=== PATIENT | female | born 1950 | race Caucasian/White ===

== ENCOUNTER → 2016-10-15 | Outpatient (REF) | payer MEDICARE ==
[2016-10-15 12:50] LABS: INR 2.25
== END ==
LOC: M LABDRAW1 11:32
PROVIDERS: ATTEND Emergency Medicine
DX: D68.59 Other primary thrombophilia (principal); Z79.01 Long term (current) use of anticoagulants

== ENCOUNTER → 2016-11-20 | Outpatient (REF) | payer MEDICARE ==
[2016-11-20 11:54] LABS: INR 2.93
== END ==
LOC: M LABDRAW1 11:21
PROVIDERS: ATTEND Emergency Medicine
DX: D68.59 Other primary thrombophilia (principal)

== ENCOUNTER → 2016-12-21 | Outpatient (REF) | payer MEDICARE ==
[2016-12-21 13:29] LABS: INR 1.79
== END ==
LOC: M LABDRAW1 12:51
PROVIDERS: ATTEND Emergency Medicine
DX: D68.59 Other primary thrombophilia (principal)

== ENCOUNTER → 2016-12-28 | Outpatient (REF) | payer MEDICARE ==
[2016-12-29 03:01] LABS: INR 2.47
== END ==
LOC: M LABDRAW1 09:05
PROVIDERS: ATTEND Emergency Medicine
DX: D68.59 Other primary thrombophilia (principal)

== ENCOUNTER → 2017-02-07 | Outpatient (REF) | payer MEDICARE ==
[2017-02-07 12:37] LABS: INR 2.5
== END ==
LOC: M LABDRAW1 11:51
PROVIDERS: ATTEND Emergency Medicine
DX: D68.59 Other primary thrombophilia (principal)

== ENCOUNTER → 2017-03-08 | Outpatient (REF) | payer MEDICARE ==
[2017-03-08 10:46] LABS: BASO % 0.5 % (0.0-1.0); EOS # 0.4 K/mm3 (0.0-0.50); EOS % 3.7 % (0.0-3.0); LARGE UNSTAINED CELL # 0.1 K/mm3 (0.0-0.4); LARGE UNSTAINED CELL % 1.1 % (0.0-4.0); LYMPH # 1.3 K/mm3 (1.5-4.5); LYMPH % 13.9 % (24.0-44.0); MEAN CORPUSCULAR HEMOGLOBIN 31.3 pg (27.0-33.0); MEAN CORPUSCULAR HGB CONC 32.9 g/dl (32.0-36.5); MEAN CORPUSCULAR VOLUME 95.2 fl (80.0-96.0); MONO # 0.6 K/mm3 (0.0-0.8); MONO % 6.4 % (0.0-5.0); NEUTROPHILS # 7.1 K/mm3 (1.8-7.7); NEUTROPHILS % 74.2 % (36.0-66.0); PLATELET COUNT, AUTOMATED 262 k/mm3 (150-450); RED CELL DISTRIBUTION WIDTH 14.4 % (11.5-14.5); WHITE BLOOD COUNT 9.5 K/mm3 (4.0-10.0)
[2017-03-08 10:53] LABS: INR 1.56
[2017-03-08 11:23] LABS: ALBUMIN 3.6 GM/DL (3.2-5.2); ALBUMIN/GLOBULIN RATIO 1.13 (1.00-1.93); BILIRUBIN,TOTAL 0.4 MG/DL (0.2-1.0); CALCIUM LEVEL 8.8 MG/DL (8.8-10.2); CREATININE FOR GFR 0.99 MG/DL (0.55-1.02); GLOMERULAR FILTRATION RATE 59.6 (>45); POTASSIUM SERUM 4.3 MEQ/L (3.5-5.1); TOTAL PROTEIN 6.8 GM/DL (6.4-8.2)
== END ==
LOC: M LABDRAW1 10:18
PROVIDERS: ATTEND Emergency Medicine
DX: I10 Essential (primary) hypertension (principal); E78.2 Mixed hyperlipidemia; E55.9 Vitamin D deficiency, unspecified; D68.59 Other primary thrombophilia

== ENCOUNTER → 2017-03-22 | Outpatient (REF) | payer MEDICARE ==
[2017-03-22 12:59] LABS: INR 2.29
== END ==
LOC: M LABDRAW1 12:18
PROVIDERS: ATTEND Emergency Medicine
DX: D68.59 Other primary thrombophilia (principal)

== ENCOUNTER → 2017-04-16 | Outpatient (REF) | payer MEDICARE ==
[2017-04-16 13:52] LABS: INR 1.92
== END ==
LOC: M LABDRAW1 13:11
PROVIDERS: ATTEND Emergency Medicine
DX: D68.59 Other primary thrombophilia (principal)

== ENCOUNTER → 2017-04-25 | Outpatient (REF) | payer MEDICARE ==
[2017-04-25 16:36] LABS: INR 2.02
== END ==
LOC: M LABDRAW1 16:01
PROVIDERS: ATTEND Emergency Medicine
DX: D68.59 Other primary thrombophilia (principal)

== ENCOUNTER → 2017-05-31 | Outpatient (REF) | payer MEDICARE ==
[2017-05-31 16:36] LABS: INR 2.12
== END ==
LOC: M LABDRAW1 15:38
PROVIDERS: ATTEND Emergency Medicine
DX: D68.59 Other primary thrombophilia (principal)

== ENCOUNTER → 2017-08-26 | Outpatient (REF) | payer MEDICARE ==
[2017-08-26 11:48] LABS: INR 3.13
== END ==
LOC: M LABDRAW1 08:12
PROVIDERS: ATTEND Emergency Medicine
DX: D68.59 Other primary thrombophilia (principal)

== ENCOUNTER → 2017-09-09 | Outpatient (REF) | payer MEDICARE ==
[2017-09-09 11:33] LABS: BASO % 0.4 % (0.0-1.0); EOS # 0.2 10^3/uL (0.0-0.50); EOS % 2.1 % (0.0-3.0); IMMATURE GRANULOCYTE % 0.4 % (0-0); LYMPH # 1.6 10^3/uL (1.5-4.5); LYMPH % 17.3 % (24.0-44.0); MEAN CORPUSCULAR HEMOGLOBIN 29.1 pg (27.0-33.0); MEAN CORPUSCULAR VOLUME 93.9 fl (80.0-96.0); MONO # 0.8 10^3/uL (0.0-0.8); MONO % 9.3 % (0.0-5.0); NEUTROPHILS # 6.4 10^3/uL (1.8-7.7); NEUTROPHILS % 70.5 % (36.0-66.0); PLATELET COUNT, AUTOMATED 277 10^3/uL (150-450); RED CELL DISTRIBUTION WIDTH 15.9 % (11.5-14.5)
[2017-09-09 11:36] LABS: INR 2.8
[2017-09-09 12:34] LABS: ALBUMIN 3.4 GM/DL (3.2-5.2); ALBUMIN/GLOBULIN RATIO 1.17 (1.00-1.93); ALKALINE PHOSPHATASE 75 U/L (45-117); ALT/SGPT 26 U/L (12-78); ANION GAP 10 MEQ/L (8-16); AST/SGOT 25 U/L (7-37); BILIRUBIN,TOTAL 0.4 MG/DL (0.2-1.0); BLOOD UREA NITROGEN 16 MG/DL (7-18); CALCIUM LEVEL 8.6 MG/DL (8.8-10.2); CARBON DIOXIDE LEVEL 22 MEQ/L (21-32); CHLORIDE LEVEL 110 MEQ/L (98-107); CHOLESTEROL LEVEL 193 MG/DL (<200); CREATININE FOR GFR 0.98 MG/DL (0.55-1.02); GLOMERULAR FILTRATION RATE > 60.0 (>45); GLUCOSE, FASTING 97 MG/DL (80-110); SODIUM LEVEL 142 MEQ/L (136-145); TOTAL PROTEIN 6.3 GM/DL (6.4-8.2); TRIGLYCERIDES LEVEL 115 MG/DL (<150)
== END ==
LOC: M LABDRAW1 08:17
PROVIDERS: ATTEND Emergency Medicine
DX: D68.59 Other primary thrombophilia (principal); E55.9 Vitamin D deficiency, unspecified; E78.2 Mixed hyperlipidemia; I10 Essential (primary) hypertension

== ENCOUNTER → 2017-10-23 | Outpatient (REF) | payer MEDICARE ==
[2017-10-23 12:12] LABS: PROTHROMBIN TIME 24.3 SECONDS (12.4-14.5)
== END ==
LOC: M LABDRAW1 11:41
DX: D68.59 Other primary thrombophilia (principal)
CPT/HCPCS: 85610

== ENCOUNTER → 2017-11-19 | Outpatient (REF) | payer MEDICARE ==
[2017-11-19 12:35] LABS: INR 2.67; PROTHROMBIN TIME 29.6 SECONDS (12.4-14.5)
== END ==
LOC: M LABDRAW1 11:35
DX: D68.59 Other primary thrombophilia (principal)
CPT/HCPCS: 85610

== ENCOUNTER → 2017-12-12 | Outpatient (REF) | payer MEDICARE ==
[2017-12-12 11:48] LABS: INR 1.94; PROTHROMBIN TIME 22.8 SECONDS (12.4-14.5)
== END ==
LOC: M LABDRAW1 10:09
DX: D68.59 Other primary thrombophilia (principal)
CPT/HCPCS: 85610

== ENCOUNTER → 2018-01-21 | Outpatient (REF) | payer MEDICARE ==
[2018-01-21 12:38] LABS: PROTHROMBIN TIME 55.2 SECONDS (12.4-14.5)
[2018-01-21 13:49] LABS: INR 5.76
== END ==
LOC: M LABDRAW1 10:20
DX: D68.59 Other primary thrombophilia (principal); Z79.01 Long term (current) use of anticoagulants
CPT/HCPCS: 85610

== ENCOUNTER → 2018-01-27 | Outpatient (REF) | payer MEDICARE ==
[2018-01-27 12:59] LABS: INR 1.45
== END ==
LOC: M LABDRAW1 09:07
DX: Z79.01 Long term (current) use of anticoagulants (principal); D68.59 Other primary thrombophilia
CPT/HCPCS: 85610

== ENCOUNTER → 2018-02-04 | Outpatient (REF) | payer MEDICARE ==
[2018-02-04 11:53] LABS: INR 2.21; PROTHROMBIN TIME 25.4 SECONDS (12.4-14.5)
== END ==
LOC: M LABDRAW1 10:14
DX: Z79.01 Long term (current) use of anticoagulants (principal)
CPT/HCPCS: 85610

== ENCOUNTER → 2018-02-11 | Outpatient (REF) | payer MEDICARE ==
[2018-02-11 13:10] LABS: INR 2.87; PROTHROMBIN TIME 31.3 SECONDS (12.4-14.5)
== END ==
LOC: M LABDRAW1 09:58
DX: Z51.81 Encounter for therapeutic drug level monitoring (principal); Z79.01 Long term (current) use of anticoagulants
CPT/HCPCS: 85610

== ENCOUNTER → 2018-03-10 | Outpatient (REF) | payer MEDICARE ==
[2018-03-10 11:51] LABS: BASO # 0.1 10^3/uL (0.0-0.2); BASO % 0.5 % (0.0-1.0); EOS # 0.3 10^3/uL (0.0-0.50); EOS % 2.6 % (0.0-3.0); HEMATOCRIT 35.7 % (36.0-47.0); HEMOGLOBIN 11.3 g/dl (12.0-15.5); IMMATURE GRANULOCYTE % 0.7 % (0-3.0); LYMPH # 1.3 10^3/uL (1.5-4.5); LYMPH % 13.6 % (24.0-44.0); MEAN CORPUSCULAR HEMOGLOBIN 28.8 pg (27.0-33.0); MEAN CORPUSCULAR HGB CONC 31.7 g/dl (32.0-36.5); MEAN CORPUSCULAR VOLUME 91.1 fl (80.0-96.0); MONO # 0.8 10^3/uL (0.0-0.8); MONO % 8.1 % (0.0-5.0); NEUTROPHILS % 74.5 % (36.0-66.0); PLATELET COUNT, AUTOMATED 274 10^3/uL (150-450); RED BLOOD COUNT 3.92 10^6/uL (4.00-5.40); RED CELL DISTRIBUTION WIDTH 16.6 % (11.5-14.5); WHITE BLOOD COUNT 9.5 10^3/uL (4.0-10.0)
[2018-03-10 12:02] LABS: INR 4.07; PROTHROMBIN TIME 41.6 SECONDS (12.4-14.5); TOTAL 25(OH) VITAMIN D 36.5 NG/ML (30.0-100.0)
[2018-03-10 12:14] LABS: ALBUMIN 3.3 GM/DL (3.2-5.2); ALKALINE PHOSPHATASE 74 U/L (45-117); ALT/SGPT 29 U/L (12-78); ANION GAP 14 MEQ/L (8-16); AST/SGOT 23 U/L (7-37); BILIRUBIN,TOTAL 0.3 MG/DL (0.2-1.0); BLOOD UREA NITROGEN 17 MG/DL (7-18); CALCIUM LEVEL 8.6 MG/DL (8.8-10.2); CARBON DIOXIDE LEVEL 20 MEQ/L (21-32); CHLORIDE LEVEL 111 MEQ/L (98-107); CHOLESTEROL LEVEL 180 MG/DL (<200); CHOLESTEROL RISK RATIO 2.368 (<5); CREATININE FOR GFR 1.21 MG/DL (0.55-1.30); GLOMERULAR FILTRATION RATE 47.1 (>45); GLUCOSE, FASTING 104 MG/DL (70-100); HDL CHOLESTEROL 76 MG/DL (>40); NON-HDL-C 104 MG/DL; POTASSIUM SERUM 4.3 MEQ/L (3.5-5.1); SODIUM LEVEL 145 MEQ/L (136-145); TOTAL PROTEIN 6.3 GM/DL (6.4-8.2); TRIGLYCERIDES LEVEL 85 MG/DL (<150)
== END ==
LOC: M LABDRAW1 08:14
DX: I10 Essential (primary) hypertension (principal); E78.2 Mixed hyperlipidemia; E55.9 Vitamin D deficiency, unspecified; D68.59 Other primary thrombophilia
CPT/HCPCS: 80053

== ENCOUNTER → 2018-03-17 | Outpatient (REF) | payer MEDICARE ==
[2018-03-17 13:03] LABS: PROTHROMBIN TIME 54.2 SECONDS (12.4-14.5)
[2018-03-17 13:55] LABS: INR 5.63
== END ==
LOC: M LABDRAW1 09:09
DX: Z79.01 Long term (current) use of anticoagulants (principal)
CPT/HCPCS: 85610

== ENCOUNTER → 2018-03-24 | Outpatient (REF) | payer MEDICARE ==
[2018-03-24 11:56] LABS: INR 2.52; PROTHROMBIN TIME 27.7 SECONDS (12.1-14.4)
== END ==
LOC: M LABDRAW1 09:23
DX: Z79.01 Long term (current) use of anticoagulants (principal)
CPT/HCPCS: 85610

== ENCOUNTER → 2018-04-22 | Outpatient (REF) | payer MEDICARE ==
[2018-04-22 12:28] LABS: INR 1.64; PROTHROMBIN TIME 19.7 SECONDS (12.1-14.4)
== END ==
LOC: M LABDRAW1 11:42
DX: Z79.01 Long term (current) use of anticoagulants (principal)
CPT/HCPCS: 85610

== ENCOUNTER → 2018-05-05 | Outpatient (REF) | payer MEDICARE ==
[2018-05-05 16:06] LABS: INR 3.18; PROTHROMBIN TIME 33.3 SECONDS (12.1-14.4)
== END ==
LOC: M LABDRAW1 13:00
DX: Z79.01 Long term (current) use of anticoagulants (principal)
CPT/HCPCS: 85610

== ENCOUNTER → 2018-06-16 | Outpatient (REF) | payer MEDICARE ==
[2018-06-16 12:57] LABS: INR 2.94; PROTHROMBIN TIME 31.3 SECONDS (12.1-14.4)
== END ==
LOC: M LABDRAW1 11:05
DX: Z79.01 Long term (current) use of anticoagulants (principal)
CPT/HCPCS: 85610

== ENCOUNTER 2018-07-18 09:04 | Emergency (ER) | payer MEDICARE ==
[2018-07-18] MEDS: MORPHINE 4 MG/ML 1ML VIAL/SYRINGE (J2270) IV ×2 (09:40→13:19)
[2018-07-18] MEDS: ONDANSETRON 4MG/2ML VIAL (J2405) IV (09:40)
[2018-07-18] MEDS: CLINDAMYCIN 900 MG in APPROPRIATE DILUENT 1 EA IV (09:41)
[2018-07-18] MEDS: NS 500 ML IV (09:41)
[2018-07-18 09:53] LABS: BASO # 0.1 10^3/uL (0.0-0.2); BASO % 0.2 % (0.0-1.0); EOS # 0.1 10^3/uL (0.0-0.50); EOS % 0.3 % (0.0-3.0); HEMATOCRIT 34.8 % (36.0-47.0); IMMATURE GRANULOCYTE % 0.8 % (0-3.0); LYMPH # 0.8 10^3/uL (1.5-4.5); LYMPH % 3.5 % (24.0-44.0); MEAN CORPUSCULAR HEMOGLOBIN 27.9 pg (27.0-33.0); MEAN CORPUSCULAR HGB CONC 31.6 g/dl (32.0-36.5); MEAN CORPUSCULAR VOLUME 88.3 fl (80.0-96.0); MONO # 1.5 10^3/uL (0.0-0.8); NEUTROPHILS # 19.1 10^3/uL (1.8-7.7); NEUTROPHILS % 88.2 % (36.0-66.0); PLATELET COUNT, AUTOMATED 264 10^3/uL (150-450); RED BLOOD COUNT 3.94 10^6/uL (4.00-5.40); RED CELL DISTRIBUTION WIDTH 17.7 % (11.5-14.5); WHITE BLOOD COUNT 21.6 10^3/uL (4.0-10.0)
[2018-07-18 10:09] LABS: INR 3.54; PROTHROMBIN TIME 36.3 SECONDS (12.1-14.4)
[2018-07-18 10:10] LABS: PARTIAL THROMBOPLASTIN TIME 45.7 SECONDS (25.4-37.6)
[2018-07-18 10:19] LABS: ANION GAP 10 MEQ/L (8-16); BLOOD UREA NITROGEN 19 MG/DL (7-18); C REACTIVE PROTEIN QUANTITATIV 6.84 MG/DL (0.00-0.30); CALCIUM LEVEL 8.5 MG/DL (8.8-10.2); CARBON DIOXIDE LEVEL 21 MEQ/L (21-32); CHLORIDE LEVEL 107 MEQ/L (98-107); CREATININE FOR GFR 1.19 MG/DL (0.55-1.30); GLOMERULAR FILTRATION RATE 47.9 (>45); GLUCOSE, FASTING 91 MG/DL (70-100); POTASSIUM SERUM 3.9 MEQ/L (3.5-5.1); SODIUM LEVEL 138 MEQ/L (136-145)
[2018-07-18] MEDS ORDERED: ISOVUE-370 76% 100ML VIAL (Q9967) As Ordered (10:29)
== END 2018-07-18 13:35 | disposition short-term general hospital (02) ==
LOC: M ED 09:04
DX: K05.212 Aggressive periodontitis, localized, moderate (principal); L03.211 Cellulitis of face; K21.9 Gastro-esophageal reflux disease without esophagitis; D68.51 Activated protein C resistance; Z79.899 Other long term (current) drug therapy; Z79.01 Long term (current) use of anticoagulants
CPT/HCPCS: J2270

== ENCOUNTER → 2018-08-05 | Outpatient (REF) | payer MEDICARE ==
[2018-08-05 13:55] LABS: INR 4.11; PROTHROMBIN TIME 40.8 SECONDS (12.1-14.4)
== END ==
LOC: M LABDRAW1 13:12
DX: D68.59 Other primary thrombophilia (principal)
CPT/HCPCS: 85610

== ENCOUNTER → 2018-08-07 | Outpatient (REF) | payer MEDICARE ==
[2018-08-07 12:17] LABS: INR 1.95; PROTHROMBIN TIME 22.6 SECONDS (12.1-14.4)
== END ==
LOC: M LABDRAW1 11:19
DX: Z51.81 Encounter for therapeutic drug level monitoring (principal); Z79.01 Long term (current) use of anticoagulants
CPT/HCPCS: 85610

== ENCOUNTER → 2018-08-18 | Outpatient (REF) | payer MEDICARE ==
[2018-08-18 13:07] LABS: INR 3.17; PROTHROMBIN TIME 33.2 SECONDS (12.1-14.4)
== END ==
LOC: M LABDRAW1 09:24
DX: Z79.01 Long term (current) use of anticoagulants (principal)
CPT/HCPCS: 85610

== ENCOUNTER → 2018-08-26 | Outpatient (REF) | payer MEDICARE ==
[2018-08-26 11:08] LABS: INR 3.86; PROTHROMBIN TIME 38.9 SECONDS (12.1-14.4)
== END ==
LOC: M LABDRAW1 09:11
DX: Z79.01 Long term (current) use of anticoagulants (principal)
CPT/HCPCS: 85610

== ENCOUNTER → 2018-09-02 | Outpatient (REF) | payer MEDICARE ==
[2018-09-02 11:58] LABS: BASO % 0.4 % (0.0-1.0); EOS # 0.2 10^3/uL (0.0-0.50); EOS % 1.8 % (0.0-3.0); HEMATOCRIT 34.9 % (36.0-47.0); HEMOGLOBIN 10.5 g/dl (12.0-15.5); IMMATURE GRANULOCYTE % 0.5 % (0-3.0); LYMPH # 1.2 10^3/uL (1.5-4.5); MEAN CORPUSCULAR HEMOGLOBIN 25.6 pg (27.0-33.0); MEAN CORPUSCULAR HGB CONC 30.1 g/dl (32.0-36.5); MEAN CORPUSCULAR VOLUME 85.1 fl (80.0-96.0); MONO # 0.9 10^3/uL (0.0-0.8); MONO % 8.6 % (0.0-5.0); NEUTROPHILS # 7.8 10^3/uL (1.8-7.7); NEUTROPHILS % 76.7 % (36.0-66.0); PLATELET COUNT, AUTOMATED 348 10^3/uL (150-450); RED CELL DISTRIBUTION WIDTH 16.9 % (11.5-14.5); WHITE BLOOD COUNT 10.2 10^3/uL (4.0-10.0)
[2018-09-02 12:11] LABS: ALBUMIN 3.4 GM/DL (3.2-5.2); ALBUMIN/GLOBULIN RATIO 1.03 (1.00-1.93); ALKALINE PHOSPHATASE 64 U/L (45-117); ALT/SGPT 27 U/L (12-78); ANION GAP 8 MEQ/L (8-16); AST/SGOT 29 U/L (7-37); BILIRUBIN,TOTAL 0.3 MG/DL (0.2-1.0); BLOOD UREA NITROGEN 16 MG/DL (7-18); CALCIUM LEVEL 8.6 MG/DL (8.8-10.2); CARBON DIOXIDE LEVEL 24 MEQ/L (21-32); CHLORIDE LEVEL 111 MEQ/L (98-107); CHOLESTEROL LEVEL 151 MG/DL (<200); CHOLESTEROL RISK RATIO 2.253 (<5); CREATININE FOR GFR 1.14 MG/DL (0.55-1.30); GLOMERULAR FILTRATION RATE 50.3 (>45); GLUCOSE, FASTING 113 MG/DL (70-100); HDL CHOLESTEROL 67 MG/DL (>40); LDL CHOLESTEROL 58 MG/DL (<100); NON-HDL-C 84 MG/DL; POTASSIUM SERUM 4.3 MEQ/L (3.5-5.1); SODIUM LEVEL 143 MEQ/L (136-145); TOTAL 25(OH) VITAMIN D 41.9 NG/ML (30.0-100.0); TOTAL PROTEIN 6.7 GM/DL (6.4-8.2); TRIGLYCERIDES LEVEL 131 MG/DL (<150)
[2018-09-02 12:18] LABS: INR 3.32; PROTHROMBIN TIME 34.5 SECONDS (12.1-14.4)
== END ==
LOC: M LABDRAW1 09:51
DX: I10 Essential (primary) hypertension (principal); E78.2 Mixed hyperlipidemia; E55.9 Vitamin D deficiency, unspecified; D68.59 Other primary thrombophilia
CPT/HCPCS: 80053

== ENCOUNTER → 2018-09-18 | Outpatient (REF) | payer MEDICARE ==
[~2018-09-18] MED LIST: ATEN50TA2 PO; ERGO500014 PO; FLUO40CA PO; IBAN150T6 PO; LEVOTAB10 PO; OMEP40CA2 PO; VALA1TAB2 PO; WARF-20 PO; ZALE10CA PO
[2018-09-18 16:04] LABS: INR 4.15; PROTHROMBIN TIME 41.2 SECONDS (12.1-14.4)
== END ==
LOC: M LABDRAW1 14:32
PROVIDERS: ATTEND Physician Assistant
DX: Z79.01 Long term (current) use of anticoagulants (principal)

== ENCOUNTER → 2018-10-15 | Outpatient (REF) | payer MEDICARE ==
[2018-10-15 12:21] LABS: INR 2.64; PROTHROMBIN TIME 28.7 SECONDS (12.1-14.4)
== END ==
LOC: M LABDRAW1 09:46
PROVIDERS: ATTEND Physician Assistant
DX: Z79.01 Long term (current) use of anticoagulants (principal)

== ENCOUNTER → 2018-11-06 | Outpatient (REF) | payer MEDICARE ==
[2018-11-06 12:40] LABS: BASO % 0.4 % (0.0-1.0); EOS # 0.2 10^3/uL (0.0-0.50); EOS % 1.9 % (0.0-3.0); HEMATOCRIT 36.5 % (36.0-47.0); HEMOGLOBIN 10.9 g/dl (12.0-15.5); LYMPH # 1.1 10^3/uL (1.5-4.5); LYMPH % 11.2 % (24.0-44.0); MEAN CORPUSCULAR HEMOGLOBIN 25.1 pg (27.0-33.0); MEAN CORPUSCULAR HGB CONC 29.9 g/dl (32.0-36.5); MEAN CORPUSCULAR VOLUME 83.9 fl (80.0-96.0); MONO # 0.9 10^3/uL (0.0-0.8); NEUTROPHILS # 7.7 10^3/uL (1.8-7.7); NEUTROPHILS % 76.9 % (36.0-66.0); PLATELET COUNT, AUTOMATED 313 10^3/uL (150-450); RED BLOOD COUNT 4.35 10^6/uL (4.00-5.40)
[2018-11-06 12:52] LABS: INR 2.93; PROTHROMBIN TIME 31.2 SECONDS (12.1-14.4)
[2018-11-06 13:09] LABS: ALBUMIN 3.5 GM/DL (3.2-5.2); BILIRUBIN,TOTAL 0.4 MG/DL (0.2-1.0); CALCIUM LEVEL 8.9 MG/DL (8.8-10.2); CREATININE FOR GFR 1.13 MG/DL (0.55-1.30); GLOMERULAR FILTRATION RATE 50.8 (>45); PERCENT SATURATION 9.4 % (13.2-45.0); POTASSIUM SERUM 4.2 MEQ/L (3.5-5.1); TOTAL PROTEIN 6.6 GM/DL (6.4-8.2)
== END ==
LOC: M LABDRAW1 11:54
PROVIDERS: ATTEND Physician Assistant
DX: D68.9 Coagulation defect, unspecified (principal); Z79.01 Long term (current) use of anticoagulants

== ENCOUNTER → 2018-12-19 | Outpatient (REF) | payer MEDICARE ==
[2018-12-19 12:11] LABS: INR 3.89; PROTHROMBIN TIME 39.1 SECONDS (12.1-14.4)
== END ==
LOC: M LABDRAW1 10:00
PROVIDERS: ATTEND Physician Assistant
DX: Z79.01 Long term (current) use of anticoagulants (principal)

== ENCOUNTER → 2019-01-23 | Outpatient (REF) | payer MEDICARE ==
[~2019-01-23] MED LIST changes: -ERGO500014 PO; +VITA500045 PO
[2019-01-23 12:57] LABS: INR 3.75
== END ==
LOC: M LABDRAW1 11:37
PROVIDERS: ATTEND Physician Assistant
DX: Z51.81 Encounter for therapeutic drug level monitoring (principal); Z79.01 Long term (current) use of anticoagulants

== ENCOUNTER → 2019-01-27 | Outpatient (REF) | payer MEDICARE ==
[2019-01-27 14:09] LABS: INR 4.21; PROTHROMBIN TIME 41.6 SECONDS (12.1-14.4)
== END ==
LOC: M LABDRAW1 11:55
PROVIDERS: ATTEND Physician Assistant
DX: Z79.01 Long term (current) use of anticoagulants (principal)

== ENCOUNTER → 2019-01-30 | Outpatient (REF) | payer MEDICARE ==
[2019-01-30 10:17] LABS: INR 2.05; PROTHROMBIN TIME 23.5 SECONDS (12.1-14.4)
== END ==
LOC: M LABDRAW1 09:36
PROVIDERS: ATTEND Physician Assistant
DX: Z79.01 Long term (current) use of anticoagulants (principal)

== ENCOUNTER → 2019-02-05 | Outpatient (REF) | payer MEDICARE ==
[2019-02-05 11:25] LABS: INR 1.79; PROTHROMBIN TIME 21.1 SECONDS (12.1-14.4)
== END ==
LOC: M LABDRAW1 10:35
PROVIDERS: ATTEND Physician Assistant
DX: Z79.01 Long term (current) use of anticoagulants (principal)

== ENCOUNTER → 2019-02-09 | Outpatient (REF) | payer MEDICARE ==
[2019-02-09 13:36] LABS: INR 2.46; PROTHROMBIN TIME 27.2 SECONDS (12.1-14.4)
== END ==
LOC: M LABDRAW1 12:00
PROVIDERS: ATTEND Physician Assistant
DX: Z79.01 Long term (current) use of anticoagulants (principal)

== ENCOUNTER → 2019-02-17 | Outpatient (REF) | payer MEDICARE ==
[2019-02-17 11:03] LABS: INR 3.2; PROTHROMBIN TIME 33.5 SECONDS (12.1-14.4)
== END ==
LOC: M LABDRAW1 10:29
PROVIDERS: ATTEND Physician Assistant
DX: Z79.01 Long term (current) use of anticoagulants (principal)

== ENCOUNTER → 2019-02-19 | Outpatient (REF) | payer MEDICARE ==
[2019-02-19 14:26] LABS: INR 3.74; PROTHROMBIN TIME 37.9 SECONDS (12.1-14.4)
== END ==
LOC: M LABDRAW1 11:18
PROVIDERS: ATTEND Physician Assistant
DX: Z79.01 Long term (current) use of anticoagulants (principal)

== ENCOUNTER → 2019-02-25 | Outpatient (REF) | payer MEDICARE ==
[2019-02-25 11:37] LABS: INR 3.19; PROTHROMBIN TIME 33.4 SECONDS (12.1-14.4)
== END ==
LOC: M LABDRAW1 10:07
PROVIDERS: ATTEND Physician Assistant
DX: Z79.01 Long term (current) use of anticoagulants (principal)

== ENCOUNTER → 2019-02-27 | Outpatient (REF) | payer MEDICARE ==
[2019-02-27 11:36] LABS: INR 3.37; PROTHROMBIN TIME 34.9 SECONDS (12.1-14.4)
== END ==
LOC: M LABDRAW1 10:34
PROVIDERS: ATTEND Physician Assistant
DX: Z79.01 Long term (current) use of anticoagulants (principal)

== ENCOUNTER → 2019-03-02 | Outpatient (REF) | payer MEDICARE ==
[2019-03-02 11:48] LABS: INR 1.97; PROTHROMBIN TIME 22.8 SECONDS (12.1-14.4)
== END ==
LOC: M LABDRAW1 10:54
PROVIDERS: ATTEND Physician Assistant
DX: Z79.01 Long term (current) use of anticoagulants (principal)

== ENCOUNTER → 2019-03-09 | Outpatient (REF) | payer MEDICARE ==
[2019-03-09 13:23] LABS: BASO # 0.1 10^3/uL (0.0-0.2); BASO % 0.5 % (0.0-1.0); EOS # 0.2 10^3/uL (0.0-0.50); EOS % 1.9 % (0.0-3.0); HEMATOCRIT 35.9 % (36.0-47.0); HEMOGLOBIN 10.6 g/dl (12.0-15.5); LYMPH # 1.3 10^3/uL (1.5-4.5); LYMPH % 12.4 % (24.0-44.0); MEAN CORPUSCULAR HEMOGLOBIN 25.1 pg (27.0-33.0); MEAN CORPUSCULAR HGB CONC 29.5 g/dl (32.0-36.5); MEAN CORPUSCULAR VOLUME 85.1 fl (80.0-96.0); MONO % 9.2 % (0.0-5.0); NEUTROPHILS # 7.8 10^3/uL (1.8-7.7); NEUTROPHILS % 75.4 % (36.0-66.0); PLATELET COUNT, AUTOMATED 342 10^3/uL (150-450); RED BLOOD COUNT 4.22 10^6/uL (4.00-5.40); WHITE BLOOD COUNT 10.3 10^3/uL (4.0-10.0)
[2019-03-09 13:35] LABS: INR 2.33
[2019-03-09 13:59] LABS: PERCENT SATURATION 6.5 % (13.2-45.0); THYROID STIMULATING HORMONE 1.5 uIU/ML (0.358-3.740)
== END ==
LOC: M LABDRAW1 11:50
PROVIDERS: ATTEND Physician Assistant
DX: Z79.01 Long term (current) use of anticoagulants (principal); D64.9 Anemia, unspecified; F41.1 Generalized anxiety disorder

== ENCOUNTER → 2019-03-16 | Outpatient (REF) | payer MEDICARE ==
[2019-03-16 12:46] LABS: INR 2.84; PROTHROMBIN TIME 29.7 SECONDS (11.8-14.0)
== END ==
LOC: M LABDRAW1 11:49
PROVIDERS: ATTEND Physician Assistant
DX: Z79.01 Long term (current) use of anticoagulants (principal)

== ENCOUNTER → 2019-04-02 | Outpatient (REF) | payer MEDICARE ==
[2019-04-02 12:58] LABS: INR 2.85; PROTHROMBIN TIME 29.8 SECONDS (11.8-14.0)
== END ==
LOC: M LABDRAW1 09:17
PROVIDERS: ATTEND Physician Assistant
DX: Z79.01 Long term (current) use of anticoagulants (principal)

== ENCOUNTER → 2019-04-30 | Outpatient (REF) | payer MEDICARE ==
[2019-04-30 13:14] LABS: INR 4.28; PROTHROMBIN TIME 41.3 SECONDS (11.8-14.0)
== END ==
LOC: M LABDRAW1 09:34
PROVIDERS: ATTEND Physician Assistant
DX: D68.59 Other primary thrombophilia (principal); Z79.01 Long term (current) use of anticoagulants

== ENCOUNTER → 2019-05-02 | Outpatient (CLI) | payer MEDICARE ==
[~2019-05-02] MED LIST changes: +ALBU8.5H INH; +CETI10CA2 PO; +FERR325T3 PO; +FLUTISP; +LISI-538 PO; +MULTCAP PO; -OMEP40CA2 PO; +OMEP40CA97 PO; +SIMV40TA20 PO; -VALA1TAB2 PO; +VALA1TAB64 PO; +VITA500079 PO; +WARF-58 PO
[2019-05-02 11:40] LABS: INR 3.97; PROTHROMBIN TIME 38.9 SECONDS (11.8-14.0)
== END ==
LOC: M WUC 09:01
PROVIDERS: ATTEND Physician Assistant
DX: D68.59 Other primary thrombophilia (principal); Z79.01 Long term (current) use of anticoagulants

== ENCOUNTER → 2019-05-05 | Outpatient (REF) | payer MEDICARE ==
[~2019-05-05] MED LIST changes: -ALBU8.5H INH; -CETI10CA2 PO; -FERR325T3 PO; -FLUTISP; -LISI-538 PO; -MULTCAP PO; +OMEP40CA2 PO; -OMEP40CA97 PO; -SIMV40TA20 PO; +VALA1TAB2 PO; -VALA1TAB64 PO; -VITA500079 PO; -WARF-58 PO
[2019-05-05 12:42] LABS: PROTHROMBIN TIME 50.5 SECONDS (11.8-14.0)
[2019-05-05 13:07] LABS: INR 5.51
== END ==
LOC: M LABDRAW1 09:20
PROVIDERS: ATTEND Physician Assistant
DX: D68.59 Other primary thrombophilia (principal); Z79.01 Long term (current) use of anticoagulants

== ENCOUNTER → 2019-05-06 | Outpatient (REF) | payer MEDICARE ==
[2019-05-06 13:54] LABS: INR 5.17
== END ==
LOC: M LABDRAW1 08:56
PROVIDERS: ATTEND Physician Assistant
DX: D68.59 Other primary thrombophilia (principal); Z79.01 Long term (current) use of anticoagulants

== ENCOUNTER → 2019-05-08 | Outpatient (REF) | payer MEDICARE ==
[2019-05-08 12:09] LABS: INR 2.54; PROTHROMBIN TIME 27.2 SECONDS (11.8-14.0)
== END ==
LOC: M LABDRAW1 08:20
PROVIDERS: ATTEND Physician Assistant
DX: D68.59 Other primary thrombophilia (principal); Z79.01 Long term (current) use of anticoagulants

== ENCOUNTER → 2019-05-20 | Outpatient (REF) | payer MEDICARE ==
[2019-05-20 11:58] LABS: INR 2.92; PROTHROMBIN TIME 30.4 SECONDS (11.8-14.0)
== END ==
LOC: M LABDRAW1 09:56
PROVIDERS: ATTEND Physician Assistant
DX: D68.59 Other primary thrombophilia (principal); Z79.01 Long term (current) use of anticoagulants

== ENCOUNTER → 2019-06-11 | Outpatient (REF) | payer MEDICARE ==
[2019-06-11 14:19] LABS: INR 2.65; PROTHROMBIN TIME 28.1 SECONDS (11.8-14.0)
== END ==
LOC: M LAB REF 12:50
PROVIDERS: ATTEND Physician Assistant
DX: D68.59 Other primary thrombophilia (principal); Z79.01 Long term (current) use of anticoagulants

== ENCOUNTER → 2019-07-14 | Outpatient (REF) | payer MEDICARE ==
[~2019-07-14] MED LIST changes: -OMEP40CA2 PO; +OMEP40CA97 PO
[2019-07-14 12:52] LABS: INR 2.87
== END ==
LOC: M LABDRAW1 09:32
PROVIDERS: ATTEND Physician Assistant
DX: D68.59 Other primary thrombophilia (principal); Z79.01 Long term (current) use of anticoagulants

== ENCOUNTER → 2019-08-13 | Outpatient (REF) | payer MEDICARE ==
[2019-08-13 12:34] LABS: INR 2.38; PROTHROMBIN TIME 25.8 SECONDS (11.8-14.0)
== END ==
LOC: M LABDRAW1 11:47
PROVIDERS: ATTEND Physician Assistant
DX: D68.59 Other primary thrombophilia (principal); Z79.01 Long term (current) use of anticoagulants

== ENCOUNTER → 2019-09-07 | Outpatient (REF) | payer MEDICARE ==
[~2019-09-07] MED LIST changes: -VALA1TAB2 PO; +VALA1TAB64 PO
[2019-09-07 12:24] LABS: BASO # 0.1 10^3/uL (0.0-0.2); BASO % 0.4 % (0.0-1.0); EOS # 0.1 10^3/uL (0.0-0.5); EOS % 0.5 % (0.0-3.0); HEMATOCRIT 47.2 % (36.0-47.0); HEMOGLOBIN 14.9 g/dl (12.0-15.5); LYMPH % 7.8 % (24.0-44.0); MEAN CORPUSCULAR HEMOGLOBIN 31.5 pg (27.0-33.0); MEAN CORPUSCULAR HGB CONC 31.6 g/dl (32.0-36.5); MEAN CORPUSCULAR VOLUME 99.8 fl (80.0-96.0); MONO % 7.8 % (0.0-5.0); NEUTROPHILS # 10.1 10^3/uL (1.5-8.5); NEUTROPHILS % 82.8 % (36.0-66.0); PLATELET COUNT, AUTOMATED 275 10^3/uL (150-450); RED BLOOD COUNT 4.73 10^6/uL (4.00-5.40); WHITE BLOOD COUNT 12.3 10^3/uL (4.0-10.0)
[2019-09-07 12:28] LABS: ALBUMIN 3.6 GM/DL (3.2-5.2); BILIRUBIN,TOTAL 0.5 MG/DL (0.2-1.0); CALCIUM LEVEL 9.2 MG/DL (8.8-10.2); CHOLESTEROL RISK RATIO 2.375 (<5); CREATININE FOR GFR 1.03 MG/DL (0.55-1.30); GLOMERULAR FILTRATION RATE 56.4 (>39); PERCENT SATURATION 36.2 % (13.2-45.0); POTASSIUM SERUM 4.3 MEQ/L (3.5-5.1); TOTAL PROTEIN 6.9 GM/DL (6.4-8.2)
[2019-09-07 12:30] LABS: TOTAL 25(OH) VITAMIN D 41.9 NG/ML (30.0-100.0)
[2019-09-07 12:34] LABS: INR 2.28; PROTHROMBIN TIME 24.9 SECONDS (11.8-14.0)
== END ==
LOC: M LABDRAW1 09:37
PROVIDERS: ATTEND Physician Assistant
DX: D64.9 Anemia, unspecified (principal); I10 Essential (primary) hypertension; E78.2 Mixed hyperlipidemia; E55.9 Vitamin D deficiency, unspecified; D68.59 Other primary thrombophilia; Z79.01 Long term (current) use of anticoagulants; Z79.899 Other long term (current) drug therapy

== ENCOUNTER → 2019-09-12 | Outpatient (CLI) | payer MEDICARE ==
--- NOTE | 2019-09-21 10:30 | REP ---
MRI left shoulder without contrast: History: Primary osteoarthritis. Rule out rotator cuff tear. No comparison imaging. The patient relates 6 months ago. Technique: Axial, oblique coronal and oblique sagittal imaging planes utilized. T1 and T2-weighted scans were obtained with and without fat saturation. MRI findings: There is subcortical cyst formation in the superolateral humeral head. This finding may be correlated with impingement. Cortical and medullary bone signal intensity are otherwise normal. There is minimal hypertrophy at the AC joint. There is attenuation of the distal 12 mm of supraspinatus tendon with increased signal intensity consistent with a complete distal supraspinatus rotator cuff tear on T2-weighted scans. No muscle edema or ashly retraction is appreciated. There is a small quantity of subacromial subdeltoid bursal effusion. The infraspinatus and subscapularis tendons appear intact. Biceps tendon is in the bony bicipital groove and has an intact appearance. At the inferior aspect of the glenohumeral articulation there is a small low T1, low T2 signal intensity rectangular shaped focus consistent with a intra-articular osteocartilaginous body. This measures 3 mm in greatest diameter. There is no significant joint effusion. Periarticular soft tissues are otherwise unremarkable. No anterior, posterior or superior labral cartilage tear is seen. Impression: 1. Subacromial subdeltoid bursal effusion. 2. Full-thickness distal supraspinatus cuff tear. 3. Mild AC joint osteoarthritis and acromion process spurring. 4. Suspected 3 mm osteocartilaginous loose body at the inferior joint line. Electronically Signed by Jerzy Faustin MD 09/21/2019 06:17 P
== END ==
LOC: M RAD 12:16
PROVIDERS: ATTEND Orthopaedic Surgery Hand Surgery
DX: M75.122 Complete rotator cuff tear or rupture of left shoulder, not specified as traumatic (principal); M75.52 Bursitis of left shoulder; M25.412 Effusion, left shoulder; M25.712 Osteophyte, left shoulder; M19.012 Primary osteoarthritis, left shoulder

== ENCOUNTER → 2019-10-14 | Outpatient (REF) | payer MEDICARE ==
[~2019-10-14] MED LIST changes: +ALBU8.5H INH; +CETI10CA2 PO; +FERR325T3 PO; +FLUTISP; +LISI-538 PO; +MULTCAP PO; +SIMV40TA20 PO; +VITA500079 PO; +WARF-58 PO
[2019-10-14 12:31] LABS: INR 2.6; PROTHROMBIN TIME 27.7 SECONDS (11.8-14.0)
== END ==
LOC: M LABDRAW1 11:27
PROVIDERS: ATTEND Physician Assistant
DX: D68.59 Other primary thrombophilia (principal)

== ENCOUNTER → 2019-10-18 | Outpatient (CLI) | payer MEDICARE ==
[2019-10-18 11:07] LABS: INR 1.02; PROTHROMBIN TIME 13.1 SECONDS (11.8-14.0)
== END ==
LOC: M LAB 10:21
PROVIDERS: ATTEND Physician Assistant
DX: D68.59 Other primary thrombophilia (principal)

== ENCOUNTER 2019-10-19 05:42 | Day surgery (SDC) | payer MEDICARE ==
[~2019-10-19] VITALS: Ht 149.9 cm; Wt 72.6 kg
[2019-10-19] MEDS ORDERED: ROPIvacaine 0.5% 30 ML INJECTION (J2795 PER 1MG) ONE (05:43)
[2019-10-19] MEDS ORDERED: LR 1,000 ML IV ONE (06:00)
[2019-10-19] MEDS ORDERED: fentaNYL 100 MCG/2 ML INJECTION (J3010) IV SCH (06:00)
[2019-10-19] MEDS ORDERED: LIDOCAINE 1% MDV 20ML VIAL SQ PRN (06:00)
[2019-10-19] MEDS ORDERED: ceFAZolin SOD 2 GM in IV 1 EA IV ONE (06:00)
[2019-10-19] MEDS ORDERED: LIDOCAINE 2% INJ 100 MG/5 ML SDV (FOR ANES.) As Ordered ONE (06:47)
[2019-10-19] MEDS ORDERED: ROCURONIUM BROMIDE 50 MG/5 ML VIAL As Ordered ONE (06:47)
[2019-10-19] MEDS ORDERED: propofoL 200 MG/20 ML VIAL As Ordered ONE (06:47)
[2019-10-19] MEDS ORDERED: fentaNYL 250 MCG/5 ML INJECTION (J3010) As Ordered ONE (06:48)
[2019-10-19] MEDS ORDERED: MIDAZOLAM INJ 2 MG/2 ML VIAL (J2250) As Ordered ONE ×2 (06:48→06:58)
[2019-10-19] MEDS ORDERED: LACRILUBE (AKWA TEARS) OPHTH OINT 3.5 GM As Ordered ONE (06:56)
[2019-10-19] MEDS ORDERED: fentaNYL 100 MCG/2 ML INJECTION (J3010) As Ordered ONE (06:58)
[2019-10-19] MEDS ORDERED: EPINEPHrine 1MG/ML INJ 30ML MD-VIAL As Ordered ONE (07:18)
[2019-10-19] MEDS: MIDAZOLAM INJ 2 MG/2 ML VIAL (J2250) IV SCH ×2 (07:45→07:47)
[2019-10-19] MEDS ORDERED: SUGAMMADEX SODIUM 500 MG/5 ML VIAL (BRIDION) As Ordered ONE (08:33)
[2019-10-19] MEDS ORDERED: dexameTHASONE 4 MG/ML 1ML VIAL (J1100) As Ordered ONE (08:36)
[2019-10-19] MEDS ORDERED: ONDANSETRON 4MG/2ML VIAL (J2405) As Ordered ONE (08:36)
[2019-10-19] MEDS ORDERED: LABETALOL HCL 100 MG/20 ML VIAL As Ordered ONE (10:33)
[2019-10-19] MEDS: LABETALOL HCL 100 MG/20 ML VIAL IV SCH ×5 (11:05→11:40)
[2019-10-19] MEDS ORDERED: METOCLOPRAMIDE INJ 10MG/2ML VIAL (J2765) IV PRN (11:30)
[2019-10-19] MEDS ORDERED: fentaNYL 100 MCG/2 ML INJECTION (J3010) IV PRN (11:30)
[2019-10-19] MEDS ORDERED: ONDANSETRON 4MG/2ML VIAL (J2405) IV PRN (11:30)
[2019-10-19] MEDS ORDERED: MEPERIDINE INJ 25 MG/ML VIAL (J2175) IV PRN (11:30)
[2019-10-19] MEDS ORDERED: LR 1,000 ML IV SCH (11:30)
[2019-10-19 11:40] VITALS: BP 184/84
[2019-10-19] MEDS ORDERED: LABETALOL HCL 100 MG/20 ML VIAL IV SCH (12:00)
--- NOTE | 2019-10-19 14:30 | RO ---
DATE OF SERVICE: 10/19/2019 PREOPERATIVE DIAGNOSIS: Left rotator cuff tear with glenohumeral osteoarthritis. POSTOPERATIVE DIAGNOSES: Left rotator cuff tear with glenohumeral osteoarthritis, spontaneous long head biceps rupture. PROCEDURE: L RTC repair, acromioplasty, subacromiodecompression, distal clavicle excision INDICATIONS: This is a 69-year-old female who failed nonoperative multiple treatments. We discussed the risks and benefits of arthroscopic rotator cuff repair, including but not limited to infection, damage to surrounding structures, incomplete relief. The patient wished to proceed. SURGEON: Tristan Veras MD WELT SOLE LAYER: Julia Farris PA-C, who was essential for suture management. COMPLICATIONS: None. ANESTHESIA: General with the addition of peripheral nerve block. BLOOD LOSS: Minimal. OPERATIVE DESCRIPTION: The patient was brought back to the operating room (OR) in the supine position and underwent general anesthesia, then placed in the beach chair. Once adequately positioned, the left arm was prepped and draped in the usual fashion. Once we had time-out, we confirmed site, side, and surgery; and once all in agreement, we made a stab incision in left posterior portal. We entered the glenohumeral joint and established our anterior portal and placed a 7 x 7 Arthrex cannula. We then evaluated the joint. At this point, we identified a spontaneous long head biceps tear, along with splaying of the superior and anterior labrum. This was debrided with a shaver. We then identified stage 2/3 changes diffusely throughout the glenoid and the humeral head; and we were able to see a gross rotator cuff tear approximately 3 cm in length with only about 1 cm retraction. We then entered the subacromial space. We did a complete synovectomy of the subacromial space. I did subacromial decompression, debriding synovium from the cuff along the cuff edges. We then utilized the supervisor printing shop to debride the underside of the acromion. We used the bur to debride the underside of the acromion. We then used the bur to do an acromioplasty from the significant leading edge spur posteriorly and medially. We then encountered the distal clavicle and did a distal clavicle excision approximately 1.1 cm until there was no decompression at the cuff. We then used a combination of a coag shaver and bur to debride the rotator cuff insertion and prep the bone. We then placed two medial row anchors through separate stab incisions at lateral tip of the acromion loaded with secure tape using the SpeedBridge. We then passed our four limbs. We cut the loops and attached our four limbs. We then placed our lateral anchors. We initially started with anterior 4.5 anchor. However, once this was placed, it immediately popped straight out of the bone due to the significantly poor bone quality. We then debrided more laterally and placed a 5.5 anchor laterally, and this was nice and secure under tension, and we proceeded with a posterior lateral row with a 4.5 in the lateral improved bone stock. We had good bite at that surface. At which point, the cuff laid down nicely with no significant dog-ears. We irrigated the subacromial space significantly, removing any bone debris, and sucked out as much water as possible. We then closed the wounds with 3-0 nylon, placed a dressing over top. The patient was awakened and placed into an ARC pillow sling and taken to postanesthesia care unit (PACU) in stable condition. POSTOPERATIVE PLAN: The patient will work on pain control with an elbow range of motion until we see her in the office for suture removal, at which point due to the large tear, we will likely limit her only to pendulums and wall crawls with no active use of the left arm until approximately 6 weeks when there has been adequate healing and we could start some physical therapy. AAKASH
[2019-10-19 14:35] VITALS: BP 131/70
== END 2019-10-19 14:45 | disposition home or self-care (01) ==
LOC: M SDC 05:42
PROVIDERS: ATTEND Orthopaedic Surgery Hand Surgery
DX: M75.112 Incomplete rotator cuff tear or rupture of left shoulder, not specified as traumatic (principal); M19.012 Primary osteoarthritis, left shoulder; S46.112A Strain of muscle, fascia and tendon of long head of biceps, left arm, initial encounter; X58.XXXA Exposure to other specified factors, initial encounter; Y92.89 Other specified places as the place of occurrence of the external cause; I10 Essential (primary) hypertension; E78.00 Pure hypercholesterolemia, unspecified; K21.9 Gastro-esophageal reflux disease without esophagitis; D68.2 Hereditary deficiency of other clotting factors; H54.61 Unqualified visual loss, right eye, normal vision left eye; F41.9 Anxiety disorder, unspecified; Z88.5 Allergy status to narcotic agent; Z79.899 Other long term (current) drug therapy; Z79.01 Long term (current) use of anticoagulants
CPT/HCPCS: 29821; 29824; 29826; 29827; 64415; C1713; J0690; J1100; J2250; J2405; J2795; J3010

== ENCOUNTER → 2019-10-23 | Outpatient (CLI) | payer MEDICARE ==
[2019-10-23 10:14] LABS: INR 1.09; PROTHROMBIN TIME 13.8 SECONDS (11.8-14.0)
== END ==
LOC: M LAB 09:23
PROVIDERS: ATTEND Physician Assistant
DX: D68.59 Other primary thrombophilia (principal)

== ENCOUNTER → 2019-10-26 | Outpatient (REF) | payer MEDICARE ==
[2019-10-26 14:24] LABS: INR 1.66; PROTHROMBIN TIME 19.4 SECONDS (11.8-14.0)
== END ==
LOC: M LABDRAW1 13:06
PROVIDERS: ATTEND Physician Assistant
DX: D68.59 Other primary thrombophilia (principal)

== ENCOUNTER → 2019-10-29 | Outpatient (REF) | payer MEDICARE ==
[2019-10-29 14:44] LABS: INR 2.02; PROTHROMBIN TIME 22.6 SECONDS (11.8-14.0)
== END ==
LOC: M LABDRAW1 12:43
PROVIDERS: ATTEND Physician Assistant
DX: D68.59 Other primary thrombophilia (principal)

== ENCOUNTER → 2019-11-06 | Outpatient (REF) | payer MEDICARE ==
[~2019-11-06] MED LIST changes: +VALA1TAB5 PO; -VALA1TAB64 PO
[2019-11-06 13:03] LABS: INR 1.57; PROTHROMBIN TIME 18.5 SECONDS (11.8-14.0)
== END ==
LOC: M LAB REF 11:46 → M LABDRAW1 11:46
PROVIDERS: ATTEND Physician Assistant
DX: D68.59 Other primary thrombophilia (principal)

== ENCOUNTER → 2019-11-12 | Outpatient (REF) | payer MEDICARE ==
[2019-11-12 18:22] LABS: INR 4.02; PROTHROMBIN TIME 39.3 SECONDS (11.8-14.0)
== END ==
LOC: M LABDRAW1 16:54
PROVIDERS: ATTEND Physician Assistant
DX: D68.59 Other primary thrombophilia (principal)

== ENCOUNTER → 2019-11-16 | Outpatient (REF) | payer MEDICARE ==
[2019-11-16 16:09] LABS: INR 4.73; PROTHROMBIN TIME 44.7 SECONDS (11.8-14.0)
== END ==
LOC: M LABDRAW1 15:26
PROVIDERS: ATTEND Physician Assistant
DX: D68.59 Other primary thrombophilia (principal)

== ENCOUNTER → 2019-11-23 | Outpatient (REF) | payer MEDICARE ==
[2019-11-23 14:05] LABS: INR 3.24
== END ==
LOC: M LABDRAW1 10:33
PROVIDERS: ATTEND Physician Assistant
DX: D68.59 Other primary thrombophilia (principal)

== ENCOUNTER → 2019-12-01 | Outpatient (REF) | payer MEDICARE ==
[2019-12-01 10:27] LABS: PROTHROMBIN TIME 66.1 SECONDS (11.8-14.0)
[2019-12-01 11:29] LABS: INR 7.72
== END ==
LOC: M LABDRAW1 08:34
PROVIDERS: ATTEND Physician Assistant
DX: D68.59 Other primary thrombophilia (principal)

== ENCOUNTER → 2020-02-18 | Outpatient (CLI) | payer MEDICARE ==
--- NOTE | 2020-02-18 10:05 | REP ---
CT LEFT SHOULDER: Axial CT left shoulder performed with sagittal and coronal reconstruction images. Correlation made with prior MRI of 01/20/2020. The patient has had prior left rotator cuff repair, acromioplasty, subacromial decompression and distal clavicle excision. No acute fracture or dislocation is seen. There is some truncation of the distal end of the clavicle. Tennga tunnels are seen in the superolateral humeral head. Humerus is high-riding with significant decrease in the subacromial space between the acromion and humeral head consistent with a tear of the supraspinatus tendon. Glenoid is intact. No calcific bodies are seen. Old healed fractures are noted of the left 4th and 5th ribs anterolaterally. Visualized left lung is clear. There is mild atherosclerotic calcification of the thoracic aorta. There are mild degenerative changes of the spine. Electronically Signed by Chalo Jimenez MD 02/18/2020 12:40 P
== END ==
LOC: M RAD 08:00
PROVIDERS: ATTEND Orthopaedic Surgery Sports Medicine
DX: M25.512 Pain in left shoulder (principal)

== ENCOUNTER → 2020-03-03 | Outpatient (CLI) | payer MEDICARE ==
[~2020-03-03] MED LIST changes: +ELIQ5TAB PO; +MS C15TA8 PO; +PERC5TAB12 PO; +TRAZ-252 PO; +VITA50005 PO; +vitamin d PO
[2020-03-03 15:06] LABS: HEMATOCRIT 44.2 % (36.0-47.0); HEMOGLOBIN 14.4 g/dl (12.0-15.5); MEAN CORPUSCULAR HEMOGLOBIN 34.2 pg (27.0-33.0); MEAN CORPUSCULAR HGB CONC 32.6 g/dl (32.0-36.5); PLATELET COUNT, AUTOMATED 217 10^3/uL (150-450); RED BLOOD COUNT 4.21 10^6/uL (4.00-5.40); WHITE BLOOD COUNT 9.6 10^3/uL (4.0-10.0)
[2020-03-03 15:16] LABS: INR 1.17; PROTHROMBIN TIME 14.6 SECONDS (11.8-14.0)
[2020-03-03 15:32] LABS: ALBUMIN 3.5 GM/DL (3.2-5.2); BILIRUBIN,TOTAL 0.4 MG/DL (0.2-1.0); CALCIUM LEVEL 9.2 MG/DL (8.8-10.2); CREATININE FOR GFR 1.09 MG/DL (0.55-1.30); GLOMERULAR FILTRATION RATE 52.8 (>39); POTASSIUM SERUM 4.1 MEQ/L (3.5-5.1); TOTAL PROTEIN 6.6 GM/DL (6.4-8.2)
[2020-03-03 15:41] LABS: ERYTHROCYTE SEDIMENTATION RATE 9 mm/hr (0-30)
--- NOTE | 2020-03-03 16:26 | REP ---
Two-view chest: 03/03/2020. Indication: Shoulder/chest pain. Comparison: 02/26/2013. Findings: The lungs are clear. There is no pleural effusion or pneumothorax. Cardiac silhouette is normal in size. Impression: Clear lungs. Electronically Signed by Kenji Bright DO 03/03/2020 04:17 P
== END ==
LOC: M LAB 14:20
PROVIDERS: ATTEND Orthopaedic Surgery Sports Medicine
DX: Z01.818 Encounter for other preprocedural examination (principal); M19.012 Primary osteoarthritis, left shoulder; M75.102 Unspecified rotator cuff tear or rupture of left shoulder, not specified as traumatic; Z79.01 Long term (current) use of anticoagulants

== ENCOUNTER → 2020-03-05 | Outpatient (CLI) | payer MEDICARE | LOC: M LABSMTC 09:52 | PROVIDERS: ATTEND Anesthesiology | DX: Z01.818 Encounter for other preprocedural examination (principal); Z11.59 Encounter for screening for other viral diseases ==

== ENCOUNTER 2020-03-08 06:31 | Inpatient (IN) | payer MEDICARE ==
--- NOTE | 2020-03-05 11:34 | HPE ---
DATE OF ADMISSION: 03/08/2020 CHIEF COMPLAINT: Preoperative visit for left shoulder reverse total shoulder arthroscopy (RTSA) preoperative visit. HISTORY OF PRESENT ILLNESS: This is a 69-year-old female who plan to perform left reverse total shoulder arthroscopy (RTSA). She has seen her button attaching machine operator <<0:19>> cleared for surgery. She is on Eliquis as she has factor V Leiden. They recommended holding that medication two days prior to surgery. REVIEW OF SYSTEMS: Reviewed and noted. PHYSICAL EXAMINATION: This is a well-appearing 69-year-old female, unlabored breathing. Lung bennett are clear, good entry to the bases. She has S1, S2. She has a 2/6 holosystolic flow murmur. LABORATORY DATA: Reviewed. PT 14.6, INR 1.17. Hemoglobin is 14.4. ASSESSMENT AND PLAN: This is a 69-year-old female who is ready to go ahead with her left reverse total shoulder arthroscopy (RTSA). She is optimized from a medical standpoint. She will hold her blood thinner, Eliquis, two days prior to the surgery. I have warned her of risk of bleeding as well as clot. We will go ahead with the procedure and she will need COVID testing three days before. This is already arranged for tomorrow.
[~2020-03-08] VITALS: Ht 149.9 cm; Wt 73.9 kg
[~2020-03-08 06:31] MED LIST changes: +LR 1,000 ML IV ONE; -MS C15TA8 PO; -PERC5TAB12 PO; +ceFAZolin SOD 2 GM in IV 1 EA IV ONE
[2020-03-08] MEDS ORDERED: ALBUTEROL SULFATE 2.5 MG/0.5 ML INH NEB SOLN As Ordered ONE (07:49)
[2020-03-08] MEDS ORDERED: MIDAZOLAM INJ 2MG/2ML VIAL (J2250 PER 1MG) As Ordered ONE (07:52)
[2020-03-08] MEDS ORDERED: fentaNYL 100 MCG/2 ML INJECTION (J3010) As Ordered ONE ×2 (07:52→07:57)
[2020-03-08] MEDS ORDERED: propofoL 200 MG/20 ML VIAL As Ordered ONE (07:56)
[2020-03-08] MEDS ORDERED: LIDOCAINE 2% 100MG/5ML SDV (FOR ANES.) As Ordered ONE (07:56)
[2020-03-08] MEDS ORDERED: TRANEXAMIC ACID 100 MG/ML 10ML VIAL As Ordered ONE (07:57)
[2020-03-08] MEDS ORDERED: ROCURONIUM BROMIDE 50 MG/5 ML VIAL As Ordered ONE ×2 (07:57→10:32)
[2020-03-08] MEDS ORDERED: EPINEPHrine INJ 1 MG/ML 1ML AMP As Ordered ONE (07:57)
[2020-03-08] MEDS ORDERED: ONDANSETRON 4MG/2ML VIAL As Ordered ONE (07:57)
[2020-03-08] MEDS ORDERED: BUPIVACAINE HCL 0.25% 10ML VIAL As Ordered ONE (07:57)
[2020-03-08] MEDS ORDERED: ceFAZolin 1GM VIAL (J0690 PER 500MG) As Ordered ONE (07:57)
[2020-03-08] MEDS ORDERED: dexameTHASONE 4 MG/ML 1ML VIAL (J1100 PER 1MG) As Ordered ONE (07:57)
[2020-03-08] MEDS ORDERED: BUPIVACAINE LIPOSOME/PF 1.3% 20ML VIAL (13.3MG/ML)(EXPAREL)(C9290 PER1MG) As Ordered ONE (07:57)
[2020-03-08] MEDS ORDERED: ONDANSETRON 4MG/2ML VIAL IV PRN ×3 (08:00→17:30)
[2020-03-08] MEDS ORDERED: NS 1,000 ML IV ONE (08:00)
[2020-03-08] MEDS ORDERED: ACETAMINOPHEN TAB 650MG DOSE (2X325MG) PO PRN ×2 (08:00→17:30)
[2020-03-08] MEDS ORDERED: ALBUTEROL SULFATE 2.5 MG/0.5 ML INH NEB SOLN INH ONE (08:00)
[2020-03-08] MEDS ORDERED: MIDAZOLAM INJ 2MG/2ML VIAL (J2250 PER 1MG) IV ONE (08:30)
[2020-03-08] MEDS ORDERED: fentaNYL 100 MCG/2 ML INJECTION (J3010) IV ONE (08:30)
[2020-03-08] MEDS ORDERED: ePHEDrine SULFATE 25 MG/5 ML(5MG/ML) SYRINGE As Ordered ONE (09:48)
[2020-03-08] MEDS ORDERED: PHENYLephrine HCL 500 MCG/5 ML (100MCG/ML) SYRINGE (J2370) As Ordered ONE (09:48)
[2020-03-08] MEDS ORDERED: SUGAMMADEX SODIUM 500 MG/5 ML VIAL (BRIDION) As Ordered ONE (10:33)
[2020-03-08] MEDS ORDERED: dexameTHASONE 10MG/1ML VIAL PRES.FREE (J1100 PER 1MG) ONE (11:00)
[2020-03-08] MEDS ORDERED: LIDOCAINE 1% MDV 20ML VIAL ONE (11:00)
[2020-03-08] MEDS ORDERED: ROPIvacaine 0.5% 30ML INJECTION (J2795 PER 1MG) ONE (11:00)
[2020-03-08] MEDS ORDERED: fentaNYL 100 MCG/2 ML INJECTION (J3010) IV PRN (12:15)
[2020-03-08] MEDS ORDERED: HYDROMORPHONE HCL 0.5 MG/ 0.5 ML SYRINGE (J1170 PER 1) IV PRN (12:15)
[2020-03-08] MEDS ORDERED: oxyCODONE 5MG TAB PO PRN (12:15)
[2020-03-08] MEDS ORDERED: LR 1,000 ML IV SCH (12:15)
--- NOTE | 2020-03-08 12:47 | RO ---
DATE OF PROCEDURE: 03/08/2020 PREOPERATIVE DIAGNOSIS: Left shoulder rotator cuff tear arthropathy. POSTOPERATIVE DIAGNOSIS: Left shoulder rotator cuff tear arthropathy. PLANNED PROCEDURE: Left shoulder RTSA (reverse total shoulder arthroplasty). PROCEDURE PERFORMED: Left shoulder RTSA (reverse total shoulder arthroplasty). SURGEON: Dr. Chip Schwartz RAIL CAR REPAIRMAN: Alexis Farris PA-C. ANESTHESIA: General. OPERATIVE PREAMBLE: This 69-year-old female underwent rotator cuff repair for a moderate size tear. She fortunately had a re-tear, large retracted supraspinatus tear. She had a moderate osteoarthritis. This is the indication to proceed with reverse total shoulder arthroplasty as she is having great difficulties lifting her arm and continued pain. We discussed the surgical indications and risks and reiterated these in preoperative holding. She wished to ahead. I marked the left upper extremity and proceeded surgery. OPERATIVE PROCEDURE: The patient was brought to operating theater. Then placed supine on beach chair. General anesthesia was induced. 2 grams IV Ancef and 2 grams IV tranexamic acid were administered intravenously. All bony prominences were padded. Sequential compression devices (SCDs) were used. Bear hugger warmer was employed. Spider arm positioner was used on the patient's left side. Limb was prepped and draped the usual sterile fashion allowing over 3 minutes prep solution drying time. Preoperative time-out was performed to confirm the site, the patient and surgery. I began by making a standard deltopectoral incision centered just lateral to the coracoid process. I carried dissection down through skin and subcutaneous tissue ensuring meticulous hemostasis. I incised the deltopectoral interval. I protected the cephalic vein taking this laterally. I incised the lateral border of the conjoined tendon. Retracted this medially. I used the Sanchez shoulder retractor. Identified the circumflex humeral anterior vessels. I ligated these with 2-0 Vicryl suture. I divided them. I created a subscapularis tenotomy. I placed a sutures #2 FiberWire in the subscapularis. I followed the dissection proximally through the rotator interval proximally. I externally rotated the arm and dislocated the humerus. Cut guide was inserted into the proximal humerus. This was in line with the arm and 20 degrees of retroversion. A cut was made and a humeral head was removed. I then used retractors to achieve the glenoid visualization. I achieved circumferential visualization of the glenoid. I removed the labrum. Created a small plane the anterior aspect of glenoid. Retractors were placed appropriately. The center pin was then placed in the center of the glenoid aiming just inferiorly anteriorly. I then used the standard size glenoid reamer. I drilled for the SRTT baseplate with medium peg in the center drill hole. There is good bone all around. Guidewire was removed. This was thoroughly irrigated with pulse lavage. I then impacted the standard size baseplate into place. I used the flexible drill and inserted a 30 mm screw anteriorly aiming for the coracoid base as well as 35 mm screw inferiorly. This also achieved good bony purchase. This was thoroughly irrigated. I then impacted a 36 mm eccentric glenosphere in appropriate position, keep the eccentricity inferiorly. I then turned my attention to the humeral side. I broached up to size 14 mm stem. This was quite tight. It achieved good rotational stability as well as good the inferior superior stability. I inserted this again down to appropriate depth in 20 degrees retroversion. I used the proximal humerus reamer for the reverse body. This was then trialled up to a 9 mm extension with a +6 mm liner. This was stable and solid. Conjoined tendon had a good tension. Shoulder was tight. They were still able to get their hand to their mouth and normal internal rotation with the arm in 90 degrees abduction. No obvious notching or levering out. No instability. Trials were removed. Drill holes were then placed in the anterior and anterolateral aspect of the humerus and #2 FiberWire sutures placed for subscapularis repair. I thoroughly irrigated using pulse lavage again in the canal of the humerus. I inserted the 14 mm stem with reverse body plus 9 mm extension as well as a +6 mm liner. Humerus was reduced. Retractors removed arm taken out of the spider delgado and taken through full range of motion. The components were stable and solid. I then repaired the subscapularis with the transosseous suture and a Tapia needle. I had placed the sutures around the component. I used horizontal mattress type sutures with the stay sutures as well for robust repair. I then irrigated the soft tissues. Closed the deltopectoral interval with #1-0 Vicryl suture. Subcutaneous tissues closed with #2-0 Vicryl sutures and skin with #3-0 Monocryl in a running fashion. Skin was cleaned with dry dressing. Exparel local anesthetic was then used with a 10 mL normal saline and 10 mL of 0.25% Marcaine and around the incision. Steri-Strips were applied as well as Adaptic, 4 x 8 gauze, ABD dressing and cloth tape. The patient's upper extremities was then placed into a sling and keeping internal rotation. The patient was woken up from general anesthetic, transferred off the operating table, and taken to the postanesthetic care unit in stable condition. All sponge, needle, strong counts correct. No complications. PLAN: The patient is to be likely admitted for one postoperative day. Discharged home once her pain is under control. Estimated blood loss 150 mL. The patient is to followup in the clinic in 2 weeks' time. She will be maintained in a sling full-time and start immediate hand, wrist and elbow exercises. They may change the dressing postop day #2 or wait until followup in clinic. Prescription for oral pain medication will be sent to their pharmacy of choice electronically. The nurse assistant Alexis Farris was instrumental in holding retractors achieving visualization and completing the case.
[2020-03-08 13:20] VITALS: BP 166/89
[2020-03-08 14:00] VITALS: BP 162/89
[2020-03-08 15:00] VITALS: BP 164/90
[2020-03-08 16:00] VITALS: BP 163/88
[2020-03-08] MEDS ORDERED: MORPHINE 4 MG/ML 1ML VIAL/SYRINGE (J2270) IV PRN (17:30)
[2020-03-08] MEDS ORDERED: PERCOCET 5MG/325MG TAB PO PRN ×3 (17:30→20:45)
[2020-03-08] MEDS: ceFAZolin SOD 2 GM in IV 1 EA IV SCH (18:45)
[2020-03-08] MEDS: LR 1,000 ML IV SCH (18:46)
[2020-03-08] MEDS: MORPHINE 2 MG/ML 1ML VIAL (J2270) IV PRN (19:42)
[2020-03-08] MEDS: traZODone 50 MG TAB PO SCH (21:00)
[2020-03-08 22:00] VITALS: BP 136/74
[2020-03-08] MEDS: PERCOCET 5MG/325MG TAB PO PRN (22:00)
[2020-03-09] MEDS: traZODone 50 MG TAB PO SCH (01:19)
[2020-03-09] MEDS: MORPHINE 2 MG/ML 1ML VIAL (J2270) IV PRN ×2 (01:19→06:41)
[2020-03-09] MEDS: ceFAZolin SOD 2 GM in IV 1 EA IV SCH (01:20)
[2020-03-09] MEDS: LR 1,000 ML IV SCH (01:30)
[2020-03-09 02:00] VITALS: BP 131/76
[2020-03-09] MEDS: PERCOCET 5MG/325MG TAB PO PRN ×2 (04:29→08:47)
[2020-03-09] MEDS ORDERED: ALBUTEROL 90 MCG/ACT 8GM HFA INHALER INH PRN (05:45)
[2020-03-09] MEDS ORDERED: FLUTICASONE PROP 0.05% NASAL SPRAY 16 GM (FLONASE) SCH (05:45)
[2020-03-09 06:00] VITALS: BP 138/79
[2020-03-09] MEDS ORDERED: PERC5TAB12 PO (06:07)
--- NOTE | 2020-03-09 08:15 | IPN ---
DATE: 03/09/2020 CHIEF COMPLAINT: Postoperative day one left reverse total shoulder arthroplasty (RTSA). HISTORY OF PRESENT ILLNESS: This 69-year-old female is in the hospital postoperative day one following a left reverse total shoulder arthroplasty. She is doing well. She does have a moderate amount of pain. Seems that the block has worn off. She has pain localized primarily to her shoulder. Other than that doing well. No nursing concerns or complaints. PHYSICAL EXAMINATION: Well-appearing 69-year-old female. Her vital signs are sable. Dressing is intact and dry. She has normal sensation and motor function to her hand in the MRU and AIN/PIN nerve distributions. Hand is warm and well perfused. Strong radial pulse. ASSESSMENT/PLAN: This 69-year-old female may be able to be discharged home today as long as her pain is under control and she is on oral pain medications. A prescription has been sent to her pharmacy of choice. We will see how today goes. To follow up in the office 2 weeks time. We will her change dressing to an Optifoam dressing today before she leaves.
[2020-03-09 08:46] VITALS: BP 138/79
[2020-03-09] MEDS ORDERED: atenoloL 50 MG TAB PO SCH (09:00)
[2020-03-09] MEDS ORDERED: FLUoxetine 20 MG CAP PO SCH (09:00)
[2020-03-09] MEDS ORDERED: FERROUS SULFATE 325MG TAB PO SCH (09:00)
[2020-03-09] MEDS ORDERED: SIMVASTATIN 40 MG TAB PO SCH (09:00)
[2020-03-09] MEDS ORDERED: lisinopriL 20 MG TAB PO SCH (09:00)
[2020-03-09] MEDS ORDERED: APIXABAN 5 MG TAB (ELIQUIS) PO SCH (09:00)
[2020-03-09] MEDS ORDERED: OMEPRAZOLE 20 MG CAP PO SCH (09:00)
[2020-03-09] MEDS ORDERED: MS C15TA8 PO (09:54)
== END 2020-03-09 09:50 | disposition home or self-care (01) | DRG 483 ==
LOC: M OR 06:31 → M MS5PR 13:15
PROVIDERS: ADMIT Family Medicine; ATTEND Orthopaedic Surgery Sports Medicine
PROC: 0RRK00Z Replacement of Left Shoulder Joint with Reverse Ball and Socket Synthetic Substitute, Open Approach (ICD-10-PCS; principal; 2020-03-08 08:00)
DX: M75.122 Complete rotator cuff tear or rupture of left shoulder, not specified as traumatic (principal); D68.2 Hereditary deficiency of other clotting factors; M19.012 Primary osteoarthritis, left shoulder; K21.9 Gastro-esophageal reflux disease without esophagitis; J30.9 Allergic rhinitis, unspecified; E55.9 Vitamin D deficiency, unspecified; F41.1 Generalized anxiety disorder; I10 Essential (primary) hypertension; E78.5 Hyperlipidemia, unspecified; Z79.01 Long term (current) use of anticoagulants; Z11.59 Encounter for screening for other viral diseases; Z79.899 Other long term (current) drug therapy

== ENCOUNTER → 2020-04-08 | Outpatient (CLI) | payer MEDICARE ==
[~2020-04-08] MED LIST changes: -LR 1,000 ML IV ONE; +MS C15TA8 PO; +PERC5TAB12 PO; -ceFAZolin SOD 2 GM in IV 1 EA IV ONE
--- NOTE | 2020-04-08 09:50 | REP ---
REASON: STATUS POST LEFT SHOULDER ARTHROPLASTY: The preprocedural exam of 02/18/2020 was reviewed. Since the last examination, a total left shoulder arthroplasty has been placed. Even with ESTEFANIA software, there is spray artifact obscuring the bony detail. The severe superior subluxation of the humeral head within the shallow glenoid seen on the prior procedural examination has been reduced. There is no evidence of subacromial narrowing by the prosthetic device. The prosthetic glenohumeral joint appears to be well aligned and near anatomical. There is no evidence of an acute fracture. IMPRESSION: Status post left arthroplasty as described above. Electronically Signed by Gregorio Jain DO 04/08/2020 11:26 A
== END ==
LOC: M RAD 08:31
PROVIDERS: ATTEND Orthopaedic Surgery Sports Medicine
DX: Z96.612 Presence of left artificial shoulder joint (principal)

== ENCOUNTER → 2020-07-29 | Outpatient (CLI) | payer MEDICARE ==
--- NOTE | 2020-07-29 15:53 | REP ---
INDICATION: LUMBAR RADICULOPATHY, R/O HNP AND STENOSIS. COMPARISON: Comparison lumbar spine radiographs are from December 17, 2013.. TECHNIQUE: Sagittal and axial T1 and T2-weighted scans are acquired in the usual fashion with and without fat saturation. Sequences include spin echo, turbo spin-echo, and STIR imaging sequences. FINDINGS: There is some straightening of the normal lumbar lordosis. There is advanced diffuse degenerative disc disease in all the visualized thoracolumbar segments. The sagittal images include T9 at the top of the imaging field in the mid sacrum at the lower margin of the imaging field. There are degenerative disc changes with disc bulges and posterior osteophytic ridging at T9-10, T10-11, T11-12, and T12-L1. No cord compression is visible on the sagittal images. There is a 3 mm T10-11 spondylolisthesis. There is a 3 mm T11-12 spondylolisthesis. Alignment is otherwise normal. Normal caliber aorta. No extra vertebral abnormality. At L1-L2, there is a large left posterior disc protrusion with cranially extruded disc material extending most of the way up all along the posterior margin of the L1 vertebral body. This compresses the left ventral margin of the thecal sac at the level of the conus. There is diffuse bulging of the remainder of the L1-2 disc. There is foraminal narrowing on the left due to disc protrusion and diffuse disc bulging. There is facet and ligamentum flavum hypertrophy At L2-L3, there is diffuse bulging of the posterior disc margin. A focal smaller disc protrusion is seen on the left again extending cranially for 2-3 mm. This compresses the left ventral lateral aspect of the thecal sac. There is some discogenic spurring in the inferior aspect of the neural foramen on the left but no ashly nerve root compression is appreciated. No spinal stenosis seen. There is ligamentum flavum and facet hypertrophy at L2-3. At L3-4, there is diffuse disc bulging. Mild central canal stenosis is seen due to this in combination with ligamentum flavum and facet hypertrophy. Midline AP dimension of the thecal sac at L3-4 is 11 mm. At L4-5, there is moderate right-sided foraminal narrowing due to disc bulging and facet hypertrophy. There is diffuse disc bulging of the remainder of the disc margin. Ligamentum flavum and facet hypertrophy are present bilaterally. Thecal sac has a triangular configuration and is felt to be mildly narrowed overall. Midline AP dimension at L4-5 is 12 mm. At L5-S1, there is minimal disc bulging. Moderate to advanced osteoarthritic facet disease is present bilaterally. Right more so than left. There is mild right-sided foraminal narrowing due to facet hypertrophy and disc bulging. IMPRESSION: Advanced degenerative spondylosis diffusely in the visualized thoracolumbar spine as discussed above. Multilevel neural foraminal narrowing. Disc protrusions at L1-2 and L2-3 on the left. <Electronically signed by Willian Faustin > 07/29/20 [id number]
== END ==
LOC: M PLARAD 14:42
PROVIDERS: ATTEND Orthopaedic Surgery Sports Medicine
DX: M54.16 Radiculopathy, lumbar region (principal)

== ENCOUNTER → 2020-09-28 | Outpatient (CLI) | payer MEDICARE | LOC: M LABSMTC 10:27 | PROVIDERS: ATTEND Physical Medicine & Rehabilitation | DX: Z20.822 Contact with and (suspected) exposure to COVID-19 (principal) ==

== ENCOUNTER → 2021-02-17 | Outpatient (CLI) | payer MEDICARE ==
[~2021-02-17] MED LIST changes: -LISI-538 PO; +LISI20TA33 PO
[2021-02-21 10:32] LABS: CREATININE FOR GFR 1.18 MG/DL (0.55-1.30); GLOMERULAR FILTRATION RATE 48.1 (>39)
== END ==
LOC: M LAB 10:40
PROVIDERS: ATTEND Pain Medicine Interventional Pain Medicine
DX: M96.1 Postlaminectomy syndrome, not elsewhere classified (principal)

== ENCOUNTER → 2021-02-23 | Outpatient (CLI) | payer MEDICARE ==
--- NOTE | 2021-02-23 16:11 | REPVR ---
PROCEDURE INFORMATION: Exam: MR Lumbar Spine Without and With Contrast Exam date and time: 02/23/2021 2:22 PM Age: 70 years old Clinical indication: Pain; Other: Post laminectomy syndrome; Prior surgery; Surgery date: 1-6 months TECHNIQUE: Imaging protocol: Multiplanar magnetic resonance images of the lumbar spine without and with intravenous contrast. Contrast material: PROHANCE; Contrast volume: 7 ml; Contrast route: INTRAVENOUS (IV); COMPARISON: MRI-Spine, L.S. without con 07/29/2020 3:01 PM FINDINGS: Vertebrae: There is no fracture. Vertebral bodies maintain their height. Spinal cord: The lower thoracic spinal cord, conus and cauda equina are normal. T9-T10: Partly visible on the sagittal images. Posterior bony ridge and disc bulge. No central stenosis. T10-T11: Visible on sagittal images only. There is a 3 mm spondylolisthesis at this level. There is a posterior disc bulge. No central spinal stenosis. There is facet arthropathy with moderate bilateral foraminal stenosis. T11-T12: Partly visible on T1 axial images. Broad-based disc protrusion. No central stenosis. Mild right foraminal stenosis. T12-L1: Included on T1 axial images. 4 mm left paracentral disc protrusion extruding slightly cephalad relative to the disc space. Facet hypertrophy. No central or foraminal stenosis. L1-L2: There is a 4 mm left paracentral disc protrusion. The large cephalad extrusion of the disc present on the prior scan has been resected. There is now a laminectomy at this level. There is extensive postoperative enhancing granulation tissue within the laminectomy defect extending into the left lateral recess. No significant fluid collection. The laminectomy decompresses the spinal canal posteriorly. There is facet arthropathy with moderate bilateral foraminal stenosis. L2-L3: 5 Mm left paracentral disc protrusion indenting the thecal sac and encroaching on the left lateral recess. This extrudes slightly cephalad this is slightly smaller than on the prior scan. There is facet arthropathy. A laminectomy decompresses the spinal canal posteriorly. There is mild right and moderate left foraminal stenosis. There is enhancing granulation tissue in the laminectomy defect extending into the left lateral recess. No significant fluid collection. L3-L4: 4 mm disc bulge. There is facet hypertrophy. A laminectomy decompresses the spinal canal posteriorly. There is moderate right and more severe left foraminal stenosis. There is effacement of the fat along the undersurface of the exiting left L3 Postoperative granulation tissue in the laminectomy defect extends space. In fluid collection. L4-L5: There is a disc bulge with a 4 mm more focal right paracentral protrusion slightly encroaching on the right lateral recess and neural foramen. This is slightly smaller than on the prior scan. There is facet arthropathy. A laminectomy decompresses the spinal canal posteriorly. There is postoperative granulation tissue in the laminectomy defect extending base. No significant fluid collection. There is mild left and severe right foraminal stenosis. There is compression of the right L4 nerve root. L5-S1: There is multilevel disc desiccation and disc space narrowing in the lower thoracic and lumbar spine. No disc edema or enhancement. Minimal disc bulge. Facet arthropathy with mild right foraminal stenosis. There is a laminectomy. Enhancing granulation tissue in the laminectomy defect extends into epidural space. No significant fluid collection Soft tissues: No significant fluid collection. No hemorrhage. IMPRESSION: 1. Interval extensive lumbar laminectomy with no evidence of central spinal stenosis. 2. Multilevel disc disease and foraminal stenosis as above. Electronically signed by: Jonas Jain On 02/23/2021 16:11:24 PM
== END ==
LOC: M PLARAD 12:54
PROVIDERS: ATTEND Pain Medicine Interventional Pain Medicine
DX: M96.1 Postlaminectomy syndrome, not elsewhere classified (principal); M51.36 Other intervertebral disc degeneration, lumbar region; M51.34 Other intervertebral disc degeneration, thoracic region

== ENCOUNTER 2021-06-26 21:12 | Inpatient (IN) | payer MEDICARE ==
[~2021-06-26] VITALS: Ht 147.3 cm; Wt 71.8 kg
[~2021-06-26 21:12] MED LIST changes: +ERGO500029 PO; +OMEP40CA4 PO; -OMEP40CA97 PO; -VITA50005 PO
[2021-06-26] MEDS ORDERED: METOPROLOL 5 MG/5 ML VIAL IV STA (21:40)
[2021-06-26] MEDS ORDERED: MORPHINE 2 MG/ML 1ML VIAL (J2270) IV ONE (21:40)
[2021-06-26] MEDS ORDERED: ASPIRIN 81 MG CHEW TABLET PO ONE (21:45)
[2021-06-26 22:10] LABS: BASO # 0.1 10^3/uL (0.0-0.2); BASO % 0.5 % (0.0-1.0); EOS # 0.2 10^3/uL (0.0-0.5); EOS % 1.1 % (0.0-3.0); HEMATOCRIT 51.5 % (36.0-47.0); HEMOGLOBIN 16.9 g/dl (12.0-15.5); LYMPH # 1.8 10^3/uL (1.5-5.0); LYMPH % 12.9 % (24.0-44.0); MEAN CORPUSCULAR HEMOGLOBIN 35.4 pg (27.0-33.0); MEAN CORPUSCULAR HGB CONC 32.8 g/dl (32.0-36.5); MONO # 1.2 10^3/uL (0.0-0.8); MONO % 8.4 % (2.0-8.0); NEUTROPHILS # 10.7 10^3/uL (1.5-8.5); PLATELET COUNT, AUTOMATED 204 10^3/uL (150-450); RED BLOOD COUNT 4.77 10^6/uL (4.00-5.40)
[2021-06-26] MEDS: METOPROLOL 5 MG/5 ML VIAL IV SCH ×2 (22:11→22:17)
[2021-06-26 22:20] LABS: INR 1.14; PROTHROMBIN TIME 15.1 SECONDS (12.7-14.5)
[2021-06-26 22:21] LABS: PARTIAL THROMBOPLASTIN TIME 29.9 SECONDS (25.9-37.0)
[2021-06-26 22:42] LABS: ALBUMIN 3.3 GM/DL (3.2-5.2); ALT/SGPT 62 U/L (12-78); BILIRUBIN,DIRECT 0.1 MG/DL (0.0-0.2); BILIRUBIN,TOTAL 0.3 MG/DL (0.2-1.0); CK-MB VALUE MASS 2.5 NG/ML (<3.6); CPK CREATINE PHOSPHOKINASE 79 U/L (26-192); MB/CK RELATIVE INDEX 3.16 (< OR =4); NT-PRO BNP 570 PG/ML (<125); TOTAL PROTEIN 6.6 GM/DL (6.4-8.2); TROPONIN I < 0.02 NG/ML (< 0.10)
[2021-06-26] MEDS ORDERED: ADENOSINE 6MG/2ML INJECTION (J0153) IV STA (22:46)
[2021-06-26] MEDS ORDERED: NS 500 ML IV ONE (23:35)
--- NOTE | 2021-06-27 00:15 | REPVR ---
PROCEDURE INFORMATION: Exam: XR Chest Exam date and time: 06/26/2021 10:21 PM Age: 71 years old Clinical indication: Pain; Other: High blood pressure; On breathing; Additional info: Chest pain TECHNIQUE: Imaging protocol: XR of the chest. Views: 1 view. COMPARISON: CR Chest, 2 view PA, Lat 03/03/2020 2:45 PM FINDINGS: Lungs: Unremarkable. No consolidation. Pleural spaces: Unremarkable. No pleural effusion. No pneumothorax. Heart/Mediastinum: Unremarkable. No cardiomegaly. Bones/joints: Unremarkable. IMPRESSION: No acute findings. Electronically signed by: Nathan Armstrong On 06/27/2021 00:15:32 AM
[2021-06-27 01:20] LABS: CK-MB VALUE MASS 2.8 NG/ML (<3.6); MB/CK RELATIVE INDEX 4.06 (< OR =4); TROPONIN I 0.12 NG/ML (< 0.10)
[2021-06-27] MEDS ORDERED: PREG100C PO (02:06)
[2021-06-27] MEDS ORDERED: ATEN25TA PO (02:06)
[2021-06-27] MEDS ORDERED: CALCCAP4 PO (02:06)
[2021-06-27] MEDS ORDERED: THERTAB52 PO (02:06)
[2021-06-27] MEDS ORDERED: TRAM50TA2 PO (02:07)
[2021-06-27] MEDS ORDERED: HOME MED LIST COMPLETE! XX SCH (02:10)
[2021-06-27 03:57] LABS: RSV AMPLIFICATION NEGATIVE (NEGATIVE)
[2021-06-27] MEDS ORDERED: MOM 30ML SUSPENSION UDC PO PRN (04:35)
[2021-06-27] MEDS ORDERED: NS 0.45% 1,000 ML IV ONE (04:35)
[2021-06-27] MEDS ORDERED: traZODone 50 MG TAB PO PRN (04:35)
[2021-06-27] MEDS ORDERED: ALBUTEROL 90 MCG/ACT 8GM HFA INHALER INH PRN (04:35)
[2021-06-27] MEDS ORDERED: FLUTICASONE PROP 0.05% NASAL SPRAY 16 GM (FLONASE) PRN (04:35)
[2021-06-27] MEDS ORDERED: ACETAMINOPHEN TAB 650MG DOSE (2X325MG) PO PRN (04:35)
[2021-06-27] MEDS ORDERED: traMADol 50 MG TAB PO PRN (04:35)
[2021-06-27] MEDS ORDERED: MAALOX 30 ML SUSP *UDC PO PRN (04:35)
--- NOTE | 2021-06-27 04:57 | HPEPDOC ---
[facility] Medical History & Physical Date of Admission Jun 27, 2021 Date of Service: Jun 27, 2021 Primary Care Physician: Williams Maxwell MD Other Provider Dr. Walsh, cardiology; Dr. Mo, pain management Attending Physician: PETTY MIRANDA MD History and Physical CHIEF COMPLAINT: Rapid heart rate HISTORY OF PRESENT ILLNESS: Bettina is a pleasant 71yo female w/ notable PMHx of factor V Leiden with previous clot causing right eye blindness on eliquis, htn, dld, ckd 3a, chronic lumbago, acid reflux, osteopenia/osteoporosis, and endometriosis status post total hysterectomy who presented to the [facility] ED on the evening of 06/26/21 with a chief complaint of a racing heart rate. Patient reports she "has not been feeling well for the past week," with intermittent periods of shortness of breath, sweats, bilateral hand numbness, and gait instability (denied any recent falls). She was seated around 7 PM on 06/26 watching a television program when she suddenly experienced racing heart rate with associated chest pain, shortness of breath, sweats, dizziness, and bitemporal headache. She reports taking her blood pressure at home when the symptoms arose and that the reading was [id number]. She first initially felt pain posteriorly between her scapula a which then progressed to the front of her chest particularly over the left pectoral. She described the pain initially as dull, with steady increase in intensity to a sharper pain. All the above symptoms that arose at 7 PM did not resolve and persisted through 8 PM, at which point she made the decision to come to the emergency department. Patient reports never having experienced this particular constellation of symptoms before. In the ED she was found to have narrow complex supraventricular tachycardia with occasional PVCs. Emergency department administered 3 different doses of 5 mg IV metoprolol tartrate with no subsequent control of rate. 6 mg of adenosine was then given roughly around 11 PM, and patient's rate then became controlled. Initial troponins were negative (less than 0.02) at 9:45 PM, with a repeat measurement just after midnight that jocelyne to 0.12. According to the report from the ED, the patient did not endorse any chest pain to them. Based on the increase of the troponin and the SVT, the emergency department contacted the on- call assembler fitter (Dr. Walsh) who is actually the patient's outpatient assembler fitter. Dr. Walsh recommended that the patient be admitted for continued monitoring and trending of troponin. Other relevant labs from the ED showed elevated lactic (3.2), BNP 570, WBC 14 with absolute neutrophilia, elevated hemoglobin and hematocrit (60.9 and 51.5 respectively), BUN 22, creatinine 1.6 (recent baseline around 1). In addition to the metoprolol and adenosine mentioned above, the patient also received 162 mg aspirin and a 500 cc normal saline bolus. A chest x-ray was ordered which showed no acute findings. At the time of admission evaluation, another repeat troponin was ordered for 3:15 AM which resulted in a another increase to 0.35. At this point, the patient's chest pain had resolved as had her dizziness, headache, and racing heart. Her shortness of breath also had improved and she reported a mild increased work of breathing but much better than before. The admitting team then reached out again to Dr. Walsh of cardiology who felt that elevated troponins are most likely secondary to the supraventricular tachycardia. At the time of admission evaluation, the patient was afebrile, heart rate 66, BP 149/83, respiratory rate 18, and saturating on room air 95%. The patient was subsequently admitted under the care of the hospitalist service to the PCU primarily for continued evaluation in the setting of elevated troponin most likely secondary to SVT. PAST MEDICAL HISTORY: Factor V Leiden (diagnosed in 1966) currently on Eliquis Thrombus causing right eye total blindness (2010), for which patient started juanjo ing the Eliquis Hypertension Dyslipidemia Acid reflux Osteopenia/osteoporosis Chronic lumbago, follows with pain management and is status post laminectomy Endometriosis status post total hysterectomy Post laminectomy syndrome PAST SURGICAL HISTORY: Left shoulder rotator cuff repair (Dr. Veras); patient continued to have symptoms and subsequently underwent a total left shoulder reverse replacement in October 2020 Laminectomy, performed by Dr. Sullivan in [place] Total hysterectomy with bilateral salpingo-oophorectomy at the age of 26 (either 1975 or 1976) Appendectomy; done at the time of total hysterectomy Tonsillectomy Bilateral bunion surgery SOCIAL HISTORY: Patient is and lives with her in [place], [place]. She is retired and formerly worked at [employer]. She has 1 son. She denies any current or former use of tobacco products. She drinks alcohol socially approximately 1 drink per month She denies any current or former illegal or IV drug use history. FAMILY HISTORY: Mother: Diabetes mellitus (presumed to be type II) Father: Diabetes mellitus (presumed to be type II) status post lower extremity amputation: Also had a heart transplant for unspecified cardiac condition Patient has 5 sisters, 1 of whom is . 3 of her living sisters have unsp ecified heart disease. Son: Hypertension ALLERGIES: Please see below. REVIEW OF SYSTEMS: CONSTITUTIONAL: Reports sweats over the past week that intensified on the evening of 06/26 as discussed in HPI. Denies recent unintentional change in weight, fever, rigors. HEENT: Reports total right eye blindness secondary to thrombus in 2010; denies any eye pain, ear pain, dysphagia, or odynophagia. CARDIOVASCULAR: Reports the chest pain and palpitations as described in HPI that have since resolved. Denies any recent specific chest pressure. RESPIRATORY: Reports intermittent episodes of dyspnea over the past week with an intense episode at around 7 PM on 06/26 as described in HPI that has significant ly improved. Denies pleuritic chest pain. GASTROINTESTINAL: Reports somewhat decreased p.o. intake over the past week. Reports chronic reflux (on PPI). Denies abdominal pain, nausea, vomiting, blood in stool. GENITOURINARY: Denies dysuria, hematuria, or flank pain. NEUROLOGICAL: Reports temporal headache bilaterally that arose acutely around 7 PM on 06/26 that is since resolved. Reports chronic left lower extremity paresthesias and bilateral finger numbness. ENDOCRINE: Reports chronic cold intolerance. HEMATOLOGIC: Reports relatively easy bruising, which is her baseline (is on Eliquis). LYMPHATIC: Denies any new lumps or bumps. HOME MEDICATIONS: Please see below. PHYSICAL EXAMINATION: VITAL SIGNS: Please see below. GENERAL APPEARANCE: Pleasant elderly female lying upright in ED bed. She does not appear to be in any acute distress. HEENT: Normocephalic, atraumatic. Noninjected, anicteric sclera. PERRLA. Oral cavity: Somewhat dry mucous membranes. No pharyngeal erythema or exudate appreciated. Neck: No lymphadenopathy appreciated. Trachea midline. Chest: There is some reproducible chest pain over the left pectoral muscle similar to her symptoms as described in HPI. CARDIOVASCULAR: Borderline bradycardic rate, regular rhythm. Normal S1, S2. 2/6 systolic murmur appreciated best over the right second parasternal intercostal space. No carotid bruits appreciated. 2+ radial and posterior tibial pulses appreciated bilaterally. 2-3-second capillary refill. LUNGS: Mild decrease in tidal volume. Symmetric chest expansion. There are bibasilar crackles most prominent with inspiration. No other adventitious breath sounds are appreciated. Breathing room air. No conversational dyspnea. ABDOMEN: Soft, moderately obese. Moderate tenderness both in the epigastric region and the left lower quadrant. There is no guarding or rigidity appreciated. Normoactive bowel sounds and lower abdomen with somewhat hypoactive bowel sounds in upper quadrants. No significant hepatosplenomegaly or palpable masses are appreciated. No CVA tenderness bilaterally. EXTREMITIES: There is trace to 1+ pitting edema of the left lower extremity and trace pitting edema of the right lower extremity. SKIN: Skin is somewhat clammy/sticky. There are multiple brownish colored m acules and papules scattered over the patient's back. NEUROLOGICAL: No gross neurologic deficits appreciated. Nondysarthric speech. Appropriately responding to all questions and following all commands. Alert and oriented to person, place, and time. PSYCHIATRIC: Pleasant mood, affect appears appropriate. LABORATORY DATA: Please see below. IMAGING: One-view portable chest x-ray, 06/26/2021 FINDINGS: Lungs: Unremarkable. No consolidation. Pleural spaces: Unremarkable. No pleural effusion. No pneumothorax. Heart/Mediastinum: Unremarkable. No cardiomegaly. Bones/joints: Unremarkable. IMPRESSION: No acute findings. MICROBIOLOGY: Please see below. ASSESSMENT & PLAN: Bettina is a 71yo f w/ notable h/o factor V Leiden on [facility] after 2010 thrombus closed right eye blindness, hypertension, dyslipidemia, CKD 3A, osteopenia/osteoporosis, chronic lumbago, and acid reflux who presented to the ED on the evening of 06/26/21 with a chief complaint of acute onset palpitations with associated dyspnea, chest pain, dizziness, and headache. Patient was found to be in supraventricular tachycardia that initially did not respond to IV metoprolol tartrate, but did have rate control with adenosine. Patient had elevated troponins and was subsequently admitted primarily for continued observation and trending of troponins as well as concurrent infectious work-up in the setting of leukocytosis, and acute renal failure. #New onset supraventricular tachycardia -Patient complained of acute onset of palpitations with chest pain, shortness of breath, dizziness, and headache at 7 PM on 06/26 while at rest EKG at approximately 9:25 PM showed narrow complex SVT with occasional PVCs, normal axis, with no significant ST elevations. -Troponin trend increased from a negative result to 0.12 to 0.35. -On-call assembler fitter (Dr. Walsh) was contacted by the ED as well as admitting service, who recommended patient be admitted for continued observation and that elevated troponins were secondary to SVT most likely. -Patient does follow with Dr. Walsh for cardiology as an outpatient. -Status post 3 doses of 5 mg IV metoprolol tartrate without control of rate; responded to 1 dose of 6 mg IV adenosine in the ED. -Patient was administered 162 mg aspirin as well as a 500 cc bolus -Patient's rate has been controlled since the adenosine and chest pain and associated -Repeat EKG done just after midnight on 06/27 showed low voltage but normal sinus rhythm and a rate of 69 bpm Symptoms are no longer present. -Of note on physical examination at time of admission, patient did have reproducible chest pain over the left pectoral similar to the chest pain that arose at 7 PM on 06/26 -Continuing to trend troponins with next value ordered for 0600 on 06/27/21 -TSH 4.47 and free T4 0.73 in the ED (patient has no reported history of hypothyroidism and is on no thyroid replacement at home) -Telemetry ordered. -Initial electrolytes were relatively unremarkable (sodium 143, potassium 4.1, magnesium 2.0); BNP was slightly elevated at 570 -Patient's home atenolol 25 mg daily tablet continued upon admission #Elevated troponin -This is most likely non-ACS per cardiology and at direct result of new onset SVT -Initial level (roughly 9:45 PM) was unremarkable; repeat just after midnight on 06/27 increased to 0.12, with most recent repeat at roughly 3:15 AM on 06/27 increasing to 0.35 -Next repeat Trope ordered at 0600 #Positive SIRS criteria with leukocytosis and tachycardia -Roughly at 10 PM on 06/26, patient's heart rate was in the 150s to 170s and initial WBC was 14,000 with absolute neutrophilia -Chest x-ray (1 view) in the ED was unremarkable for any acute process. -Urinalysis with reflex to culture and 2 blood cultures have been ordered in the work-up of possible infectious process versus reactive leukocytosis -Status post 500 cc normal saline bolus in the ED; 1 L of maintenance fluid ordered -Of note, patient denied any recent fevers but has had episodes of diaphoresis and has not felt well overall over the past week. -After adenosine dose controlled rate, patient has been hemodynamically stable, afebrile, and saturating well on room air -Procalcitonin ordered #Elevated lactic acid -Initial lactic acid was 3.2 with repeat result being unremarkable at 0.6 -Most likely secondary to demand ischemia from the tachycardia associated with the SVT #Acute renal failure on possible chronic kidney disease stage IIIa -Initial creatinine 1.6; upon review of records, recent baseline appears to be around 1. -Assessing patient's renal function dating back to 2017, patient has calculated GFR values consistent with CKD stage IIIa -Status post 500 cc normal saline bolus in the ED with 1 L of maintenance half- normal saline ordered -Half-normal saline was ordered in the setting of hyperchloremia (chloride 111) -Urinalysis has been ordered with infectious rule out work-up, with urine electrolytes as well to assess for the fractional excretion of sodium -Patient's home lisinopril not initially continued in the setting of acute renal failure; nor was her omeprazole; of note, home atenolol was continued upon admission -Renal ultrasound ordered. -Follow-up metabolic panel has been ordered as well. #Polycythemia -Initial hemoglobin 16.9, hematocrit 51.5 -Most likely secondary to dilutional effect from reported decreased oral intake -Patient is a never smoker -Patient is received 500 cc bolus and now receiving maintenance normal saline -Repeat CBC ordered #Macrocytosis -Initial CBC showed MCV of 108 -Upon review of records, patient has had macrocytosis seen dating back to at least August 2019 -Folate and B12 levels ordered -Repeat CBC ordered #History of factor V Leiden on Eliquis -Had a thrombus in 2010 then caused total right eye blindness. -Home Eliquis continued upon admission #History of hypertension -With control of rate and return to sinus rhythm status post adenosine, patient's blood pressure was 149/83 with a heart rate of 66 -Home lisinopril not initially continued in the setting of acute renal failure -2 g sodium diet #Chronic lumbago with left lower extremity paresthesias/postlaminectomy syndrome -Follows with Dr. Mo of pain management. Has previously gotten injections in her back. She reports being in the process of potentially getting a spinal cord stimulator as her left lower extremity paresthesias has worsened over the past few months. -Home tramadol continued upon admission, as needed Tylenol -Home pregabalin continued -Full wrist precautions and assisted ambulation only ordered #Presumed history of respiratory condition -Patient's home as needed albuterol inhaler continued -Portable chest x-ray in the ED was unremarkable -Patient did have bibasilar crackles on admission examination -Patient does take levocetirizine and fluticasone nasal spray as outpatient; p atient may have a reactive airway process, possibly asthma -Patient does not follow regularly as outpatient with pulmonology #Dyslipidemia -Home simvastatin continued upon admission #Osteopenia/osteoporosis -Patient takes ibandronate monthly as outpatient -Home combined calcium vitamin D tablet continued upon admission; also takes vitamin D2 50,000 units monthly -In setting of recent SVT with chronic pain, fall risk precautions and assisted ambulation only added #History of acid reflux -Patient takes omeprazole 40 mg twice a day as outpatient; this was initially held in the setting of her acute renal failure on CKD -As needed Mylanta ordered -Should patient experience breakthrough reflux, primary day team can consider continuing home PPI #Unspecified mood disorder -Patient's home fluoxetine continued #Unspecified sleep issues -Patient's home as needed trazodone continued #DVT prophylaxis: Home Eliquis was continued upon admission. CODE STATUS: Patient verbally confirms multiple times in the emergency department the casing builder of 06/27 that she is a DO NOT RESUSCITATE/DO NOT INTUBATE (she has healthcare proxy information with her but no MOST form; but vehemently states she is DNR/DNI) Disposition: Admit to PCU with telemetry for continued monitoring in the setting of new onset SVT with elevated troponins and continued work-up for possible concurrent infectious process and acute renal failure. Expect 12 midnight stay. Vital Signs Vital Signs Date Time Temp Pulse Resp B/P (MAP) Pulse Ox O2 Delivery O2 Flow Rate FiO2 06/27/21 04:16 65 16 150/73 (98) 95 Room Air 06/26/21 21:13 98.3 Laboratory Data Labs 24H Laboratory Tests 2 06/26/21 21:46: Immature Granulocyte % (Auto) 1.1, Neutrophils (%) (Auto) 76.0H, Lymphocytes (%) (Auto) 12.9L, Monocytes (%) (Auto) 8.4H, Eosinophils (%) (Auto) 1.1, Basophils (%) (Auto) 0.5, Neutrophils # (Auto) 10.7H, Lymphocytes # (Auto) 1.8, Monocytes # (Auto) 1.2H, Eosinophils # (Auto) 0.2, Basophils # (Auto) 0.1, Nucleated Red Blood Cells % (auto) 0.0, Prothrombin Time 15.1H, Prothromb Time International Ratio 1.14, Activated Partial Thromboplast Time 29.9, Lactic Acid Level 3.2*H, Magnesium Level 2.0, Total Bilirubin 0.3, Direct Bilirubin 0.1, Aspartate Amino Transf (AST/SGOT) 43H, Alanine Aminotransferase (ALT/SGPT) 62, Alkaline Phosphatase 80, Total Creatine Kinase 79, Creatine Kinase MB 2.5, Creatine Kinase MB Relative Index 3.16, Troponin I < 0.02, JM-Pew-L-Type Natriuretic Peptide 570H, Total Protein 6.6, Albumin 3.3, Albumin/Globulin Ratio 1.0L 06/26/21 21:54: POC Glucose (Misc Panel) 130H, POC Sodium (Misc Panel) 143, POC Potassium (Misc Panel) 4.1, POC Chloride (Misc Panel) 111H, POC Total CO2 (Misc Panel) 21.0L, POC Blood Urea Nitrogen (Misc Panel 22, POC Ionized Calcium (Misc Panel) 4.2L, POC Creatinine (Misc Panel) 1.6H, POC Hematocrit (Misc Panel) 48.0 06/26/21 21:56: POC Troponin I (Misc) 0.03 06/27/21 00:17: Total Creatine Kinase 69, Creatine Kinase MB 2.8, Creatine Kinase MB Relative Index 4.06H, Troponin I 0.12#H 06/27/21 03:12: Lactic Acid Followup at 4 Hours 0.6, Troponin I 0.35#H, Coronavirus (COVID- 19)(PCR) NEGATIVE, Influenza Type A (RT-PCR) NEGATIVE, Influenza Type B (RT-PCR) NEGATIVE, Respiratory Syncytial Virus (PCR) NEGATIVE CBC/BMP Laboratory Tests 06/26/21 21:46 Home Medications Scheduled Apixaban (Eliquis) 5 Mg Tablet, 5 MG PO BID Atenolol (Atenolol) 25 Mg Tablet, 25 MG PO DAILY Calcium Carbonate/Vitamin D3 (Calcium 600 + Vit D 400 Softgl) 1 Each Capsule, 1 CAP PO BID Ergocalciferol (Vitamin D2) (Vitamin D2) 50,000 Units Cap, 50,000 UNITS PO QMONTH Ferrous Sulfate (Ferrous Sulfate) 325 Mg Tablet.dr, 325 MG PO BID Fluoxetine Hcl (Fluoxetine HCl) 40 Mg Cap, 40 MG PO DAILY Fluticasone Propionate (Fluticasone Propionate) 16 Gm [place].susp, 2 SPRAYS NA DAILYPRN Ibandronate Sodium (Ibandronate Sodium) 150 Mg Tab, 150 MG PO QMONTH Levocetirizine Dihydrochloride (Levocetirizine Dihydrochloride) 5 Mg Tab, 5 MG PO DAILY Lisinopril (Lisinopril) 20 Mg Tablet, 20 MG PO DAILY Multivitamin,Therapeutic (Thera-Tabs) 1 Each Tablet, 1 TAB PO DAILY Omeprazole (Omeprazole) 40 Mg Cap, 40 MG PO BID Pregabalin (Pregabalin) 100 Mg Capsule, 100 MG PO BID Simvastatin (Simvastatin) 40 Mg Tablet, 40 MG PO QHS Scheduled PRN Albuterol Sulfate (Albuterol Sulfate Hfa) 8.5 Gm Hfa.aer.ad, 2 PUFFS INH QIDP PRN for SOB/WHEEZING Tramadol HCl (Tramadol HCl) 50 Mg Tablet, 50 MG PO TID PRN for pain Trazodone HCl (Trazodone HCl) 50 Mg Tablet, 50 MG PO QHS PRN for SLEEP Allergies Coded Allergies: No Known Allergies (Unverified , 03/03/20) A-FIB/CHADSVASC A-FIB History Current/History of A-Fib/PAF?: No Current PO Anticoag Therapy: Yes (On Eliquis with history of factor V Leiden) MARSHA ROBERTSON D.O. Jun 27, 2021 04:57
[2021-06-27 05:45] LABS: FREE T4 0.73 NG/DL (0.76-1.46)
[2021-06-27 06:43] LABS: BASO % 0.3 % (0.0-1.0); EOS # 0.1 10^3/uL (0.0-0.5); EOS % 1.3 % (0.0-3.0); HEMATOCRIT 42.6 % (36.0-47.0); LYMPH # 1.2 10^3/uL (1.5-5.0); LYMPH % 11.9 % (24.0-44.0); MEAN CORPUSCULAR HEMOGLOBIN 34.7 pg (27.0-33.0); MEAN CORPUSCULAR HGB CONC 32.4 g/dl (32.0-36.5); MONO # 0.9 10^3/uL (0.0-0.8); MONO % 8.8 % (2.0-8.0); NEUTROPHILS # 7.5 10^3/uL (1.5-8.5); NEUTROPHILS % 76.5 % (36.0-66.0); PLATELET COUNT, AUTOMATED 150 10^3/uL (150-450); RED BLOOD COUNT 3.98 10^6/uL (4.00-5.40); WHITE BLOOD COUNT 9.8 10^3/uL (4.0-10.0)
[2021-06-27 06:50] LABS: HEMOGLOBIN 13.8 g/dl (12.0-15.5)
[2021-06-27 06:51] VITALS: BP 139/76
[2021-06-27 08:00] VITALS: BP 129/64
[2021-06-27 08:05] LABS: ALBUMIN 2.6 GM/DL (3.2-5.2); BILIRUBIN,TOTAL 0.4 MG/DL (0.2-1.0); CALCIUM LEVEL 8.3 MG/DL (8.8-10.2); CREATININE FOR GFR 1.17 MG/DL (0.55-1.30); GLOMERULAR FILTRATION RATE 48.4 (>39); MAGNESIUM LEVEL 1.8 MG/DL (1.8-2.4); POTASSIUM SERUM 4.5 MEQ/L (3.5-5.1); TOTAL PROTEIN 5.1 GM/DL (6.4-8.2); TROPONIN I 0.38 NG/ML (< 0.10)
[2021-06-27 08:12] VITALS: BP 139/76
[2021-06-27 08:58] LABS: FOLATE 6.5 NG/ML (>5.4)
[2021-06-27] MEDS ORDERED: CALCIUM/VITAMIN D 500 MG TAB PO SCH (09:00)
[2021-06-27] MEDS ORDERED: PREGABALIN 100 MG CAP (LYRICA) PO SCH (09:00)
[2021-06-27] MEDS ORDERED: FLUoxetine 20 MG CAP PO SCH (09:00)
[2021-06-27] MEDS ORDERED: APIXABAN 5 MG TAB (ELIQUIS) PO SCH (09:00)
[2021-06-27] MEDS ORDERED: atenoloL 25 MG TAB PO SCH (09:00)
--- NOTE | 2021-06-27 09:54 | REP ---
INDICATION: acute renal failure on ckd 3a COMPARISON: None TECHNIQUE: Real time aguillon scale ultrasound examination using curved array transducer. FINDINGS: Bilateral kidneys are normal in reniform shape and demonstrate age-related atrophy and increased central sinus fat consistent with chronic medical renal disease. No hydronephrosis, nephrolithiasis, or cystic/mass lesions are identified. Right kidney measures 8.5 x 6.0 x 5.0 cm. Left kidney measures 7.4 x 4.1 x 4.5 cm. The bladder is grossly unremarkable. IMPRESSION: 1. Chronic medical renal disease. No hydronephrosis. <Electronically signed by Daniel Antonio > 06/27/21 0925
[2021-06-27 12:00] VITALS: BP 117/56
--- NOTE | 2021-06-27 13:47 | DS.PDOC ---
Discharge Summary General Date of Admission Jun 27, 2021 at 05:17 Date of Discharge jun Discharge Summary PROCEDURES PERFORMED DURING STAY: Chemical cardioversion ADMITTING DIAGNOSES: Supraventricular tachycardia Factor V Leiden (diagnosed in 1966) currently on Eliquis Thrombus causing right eye total blindness (2010), for which patient started taking the Eliquis Hypertension Dyslipidemia Acid reflux Osteopenia/osteoporosis Chronic lumbago, follows with pain management and is status post laminectomy Endometriosis status post total hysterectomy Post laminectomy syndrome DISCHARGE DIAGNOSES: Supraventricular tachycardia Factor V Leiden (diagnosed in 1966) currently on Eliquis Thrombus causing right eye total blindness (2010), for which patient started taking the Eliquis Hypertension Dyslipidemia Acid reflux Osteopenia/osteoporosis Chronic lumbago, follows with pain management and is status post laminectomy Endometriosis status post total hysterectomy Post laminectomy syndrome COMPLICATIONS/CHIEF COMPLAINT: Palpitations HISTORY OF PRESENT ILLNESS:Bettina is a pleasant 71yo female w/ notable PMHx of factor V Leiden with previous clot causing right eye blindness on eliquis, htn, dld, ckd 3a, chronic lumbago, acid reflux, osteopenia/osteoporosis, and endometriosis status post total hysterectomy who presented to the [facility] ED on the evening of 06/26/21 with a chief complaint of a racing heart rate. Patient reports she "has not been feeling well for the past week," with intermittent periods of shortness of breath, sweats, bilateral hand numbness, and gait instability (denied any recent falls). She was seated around 7 PM on 06/26 watching a television program when she suddenly experienced racing heart rate with associated chest pain, shortness of breath, sweats, dizziness, and bitemporal headache. She reports taking her blood pressure at home when the symptoms arose and that the reading was [id number]. She first initially felt pain posteriorly between her scapula a which then progressed to the front of her chest particularly over the left pectoral. She described the pain initially as dull, with steady increase in intensity to a sharper pain. All the above symptoms that arose at 7 PM did not resolve and persisted through 8 PM, at which point she made the decision to come to the emergency department. Patient reports never having experienced this particular constellation of symptoms before. In the ED she was found to have narrow complex supraventricular tachycardia with occasional PVCs. Emergency department administered 3 different doses of 5 mg IV metoprolol tartrate with no subsequent control of rate. 6 mg of adenosine was then given roughly around 11 PM, and patient's rate then became controlled. Initial troponins were negative (less than 0.02) at 9:45 PM, with a repeat measurement just after midnight that jocelyne to 0.12. According to the report from the ED, the patient did not endorse any chest pain to them. Based on the increase of the troponin and the SVT, the emergency department contacted the on- call transitional studies instructor (Dr. Walsh) who is actually the patient's outpatient transitional studies instructor. Dr. Walsh recommended that the patient be observed for continued monitoring and trending of troponin. Other relevant labs from the ED showed elevated lactic (3.2), BNP 570, WBC 14 with absolute neutrophilia, elevated hemoglobin and hematocrit (60.9 and 51.5 respectively), BUN 22, creatinine 1.6 (recent baseline around 1). In addition to the metoprolol and adenosine mentioned above, the patient also received 162 mg aspirin and a 500 cc normal saline bolus. A chest x-ray was ordered which showed no acute findings. At the time of admission evaluation, another repeat troponin was ordered for 3:15 AM which resulted in a another increase to 0.35. At this point, the patient's chest pain had resolved as had her dizziness, headache, and racing heart. Her shortness of breath also had improved and she reported a mild increased work of breathing but much better than before. The admitting team then reached out again to Dr. Walsh of cardiology who felt that elevated troponins are most likely secondary to the supraventricular tachycardia. At the time of admission evaluation, the patient was afebrile, heart rate 66, BP 149/83, respiratory rate 18, and saturating on room air 95%. The patient was subsequently under the care of the hospitalist service for observation in the PCU primarily for continued evaluation in the setting of elevated troponin most likely secondary to SVT. HOSPITAL COURSE: #New onset supraventricular tachycardia -Patient complained of acute onset of palpitations with chest pain, shortness of breath, dizziness, and headache at 7 PM on 06/26 while at rest EKG at approximately 9:25 PM showed narrow complex SVT with occasional PVCs, normal axis, with no significant ST elevations. -Troponin trend increased from a negative result to 0.12 to 0.35 and leveled off at 0.38. -On-call transitional studies instructor (Dr. Walsh) was contacted by the ED as well as admitting service, who recommended patient be admitted for continued observation and that elevated troponins were secondary to SVT most likely. -Patient does follow with Dr. Walsh for cardiology as an outpatient and recommend follow-up outpatient within 7 days of hospital discharge with Dr. Walsh. -Status post 3 doses of 5 mg IV metoprolol tartrate without control of rate; responded to 1 dose of 6 mg IV adenosine in the ED. -Patient was administered 162 mg aspirin as well as a 500 cc bolus -Patient's rate has been controlled since the adenosine and chest pain and associated -Repeat EKG done just after midnight on 06/27 showed low voltage but normal sinus rhythm and a rate of 69 bpm Symptoms are no longer present. -Of note on physical examination at time of admission, patient did have reproducible chest pain over the left pectoral similar to the chest pain that arose at 7 PM on 06/26 -On examination at bedside rounds this morning patient is still in sinus rhythm with heart rate in the 60s and asymptomatic -TSH 4.47 and free T4 0.73 in the ED (patient has no reported history of hypothyroidism and is on no thyroid replacement at home) -Telemetry ordered. -Initial electrolytes were relatively unremarkable (sodium 143, potassium 4.1, magnesium 2.0); BNP was slightly elevated at 570 -Patient's home atenolol 25 mg daily tablet continued upon admission-for rec- can c/w home regimen and f/u outpt with him #Elevated troponin -This is most likely non-ACS per cardiology and at direct result of new onset SVT demand ischemia -Initial level (roughly 9:45 PM) was unremarkable; repeat just after midnight on 06/27 increased to 0.12, with most recent repeat at roughly 3:15 AM on 06/27 increasing to 0.35 and the final repeat resulted as 0.3 #Positive SIRS criteria with leukocytosis and tachycardia -Roughly at 10 PM on 06/26, patient's heart rate was in the 150s to 170s and initial WBC was 14,000 with absolute neutrophilia -Chest x-ray (1 view) in the ED was unremarkable for any acute process. -Urinalysis with reflex to culture and 2 blood cultures have been ordered in the work-up of possible infectious process versus reactive leukocytosis -Status post 500 cc normal saline bolus in the ED; 1 L of maintenance fluid ordered -Of note, patient denied any recent fevers but has had episodes of diaphoresis and has not felt well overall over the past week. -After adenosine dose controlled rate, patient has been hemodynamically stable, afebrile, and saturating well on room air -Procalcitonin within normal limits -Please follow-up with primary care outpatient #Elevated lactic acid, resolved -Initial lactic acid was 3.2 with repeat result being unremarkable at 0.6 -Most likely secondary to demand ischemia from the tachycardia associated with the SVT #Acute renal failure on possible chronic kidney disease stage IIIa -Initial creatinine 1.6; upon review of records, recent baseline appears to be around 1. -Assessing patient's renal function dating back to 2017, patient has calculated GFR values consistent with CKD stage IIIa -Status post 500 cc normal saline bolus in the ED with 1 L of maintenance half- normal saline ordered -Half-normal saline was ordered in the setting of hyperchloremia (chloride 111) -Urinalysis has been ordered with infectious rule out work-up, with urine electrolytes as well to assess for the fractional excretion of sodium -Patient's home lisinopril not initially continued in the setting of acute renal failure; nor was her omeprazole; of note, home atenolol was continued upon admi ssion -Renal ultrasound ordered. -Repeat labs this morning prior to discharge creatinine of 1.17, normalized to baseline. Follow-up with PCP outpatient #Polycythemia, resolved -Initial hemoglobin 16.9, hematocrit 51.5 -Most likely secondary to dilutional effect from reported decreased oral intake -Patient is a never smoker -Patient is received 500 cc bolus and now receiving maintenance normal saline -Labs this morning prior to patient discharge shows resolved polycythemia. Follow-up with outpatient PCP #Macrocytosis -Initial CBC showed MCV of 108 -Upon review of records, patient has had macrocytosis seen dating back to at least August 2019 -Folate and B12 levels ordered -B12 on the low side thus macrocytosis likely secondary to B12 deficiency. Folate levels are within normal limits. Please follow-up with PCP outpatient #History of factor V Leiden on Eliquis -Had a thrombus in 2010 then caused total right eye blindness. -Continue home Eliquis #History of hypertension -With control of rate and return to sinus rhythm status post adenosine, patient's blood pressure was 149/83 with a heart rate of 66 -Home lisinopril not initially continued in the setting of acute renal failure -2 g sodium diet #Chronic lumbago with left lower extremity paresthesias/postlaminectomy syndrome -Follows with Dr. Mo of pain management. Has previously gotten injections in her back. She reports being in the process of potentially getting a spinal cord stimulator as her left lower extremity paresthesias has worsened over the past few months. -Home tramadol continued upon admission, as needed Tylenol -Home pregabalin continued -Full wrist precautions and assisted ambulation only ordered #Presumed history of respiratory condition -Patient's home as needed albuterol inhaler continued -Portable chest x-ray in the ED was unremarkable -Patient did have bibasilar crackles on admission examination -Patient does take levocetirizine and fluticasone nasal spray as outpatient; patient may have a reactive airway process, possibly asthma -Patient does not follow regularly as outpatient with pulmonology #Dyslipidemia -Continue home simvastatin #Osteopenia/osteoporosis -Patient takes ibandronate monthly as outpatient -Home combined calcium vitamin D tablet continued upon admission; also takes vitamin D2 50,000 units monthly -In setting of recent SVT with chronic pain, fall risk precautions and assisted ambulation only added #History of acid reflux -Patient takes omeprazole 40 mg twice a day as outpatient; this was initially held in the setting of her acute renal failure on CKD -As needed Mylanta ordered -Should patient experience breakthrough reflux, primary day team can consider continuing home PPI #Unspecified mood disorder -Patient's home fluoxetine continued #Unspecified sleep issues -Patient's home as needed trazodone continued #DVT prophylaxis: Home Eliquis was continued upon admission. DISCHARGE MEDICATIONS: Please see below. ALLERGIES: Please see below. PHYSICAL EXAMINATION ON DISCHARGE: Vitals (See below) GENERAL: The patient is a well-developed, well-nourished in no apparent distress. AAOx3 NEURO: No focal neurological deficits HEENT: Head is normocephalic and atraumatic. Extraocular muscles are intact. Pupils are equal, round, and reactive to light and accommodation. Nares appears normal. Moist mucous membranes. PULM: Clear to auscultation bilaterally. No wheezing, rhonchi or rales appreciated.. CARDIO: Normal S1, S2. no significant murmurs, gallops, rubs or clicks. No signs of peripheral edema ABDOMEN: Soft, nontender, and nondistended. Normal bowel sounds. No significant organomegaly appreciated. EXTREMITIES: No cyanosis, clubbing, rash, lesions. LABORATORY DATA: Please see below. IMAGING: Chest x-ray impression: No acute findings Renal u/s impression: chronic medical renal disease no hydronephrosis. ACTIVITY: [As tolerated]. DISCHARGE PLAN: Follow up with PCP and Cardiology within 7 days Remain compliant with treatment plan and medications Return to the ER if you experience any problems DISPOSITION: Home DISCHARGE CONDITION: 30 minutes [Stable]. TIME SPENT ON DISCHARGE: 30 MINS Vital Signs/I&Os Vital Signs Date Time Temp Pulse Resp B/P (MAP) Pulse Ox O2 Delivery O2 Flow Rate FiO2 06/27/21 08:12 65 139/76 06/27/21 08:00 96.5 20 94 Room Air l I&O- Last 24 Hours up to 6 AM 06/27/21 06:00 Intake Total 500 ml Balance 500 ml Laboratory Data Labs 24H Laboratory Tests 2 06/26/21 21:46: Immature Granulocyte % (Auto) 1.1, Neutrophils (%) (Auto) 76.0H, Lymphocytes (%) (Auto) 12.9L, Monocytes (%) (Auto) 8.4H, Eosinophils (%) (Auto) 1.1, Basophils (%) (Auto) 0.5, Neutrophils # (Auto) 10.7H, Lymphocytes # (Auto) 1.8, Monocytes # (Auto) 1.2H, Eosinophils # (Auto) 0.2, Basophils # (Auto) 0.1, Nucleated Red Blood Cells % (auto) 0.0, Prothrombin Time 15.1H, Prothromb Time International Ratio 1.14, Activated Partial Thromboplast Time 29.9, Lactic Acid Level 3.2*H, Magnesium Level 2.0, Total Bilirubin 0.3, Direct Bilirubin 0.1, Aspartate Amino Transf (AST/SGOT) 43H, Alanine Aminotransferase (ALT/SGPT) 62, Alkaline Phosphatase 80, Total Creatine Kinase 79, Creatine Kinase MB 2.5, Creatine Kinase MB Relative Index 3.16, Troponin I < 0.02, [id number]-Type Natriuretic Peptide 570H, Total Protein 6.6, Albumin 3.3, Albumin/Globulin Ratio 1.0L, Thyroid Stimulating Hormone (TSH) 4.470H, Free Thyroxine 0.73L 06/26/21 21:54: POC Glucose (Misc Panel) 130H, POC Sodium (Misc Panel) 143, POC Potassium (Misc Panel) 4.1, POC Chloride (Misc Panel) 111H, POC Total CO2 (Misc Panel) 21.0L, POC Blood Urea Nitrogen (Misc Panel 22, POC Ionized Calcium (Misc Panel) 4.2L, POC Creatinine (Misc Panel) 1.6H, POC Hematocrit (Misc Panel) 48.0 06/26/21 21:56: POC Troponin I (Misc) 0.03 06/27/21 00:17: Total Creatine Kinase 69, Creatine Kinase MB 2.8, Creatine Kinase MB Relative Index 4.06H, Troponin I 0.12#H 06/27/21 03:12: Lactic Acid Followup at 4 Hours 0.6, Troponin I 0.35#H, Coronavirus (COVID- 19)(PCR) NEGATIVE, Influenza Type A (RT-PCR) NEGATIVE, Influenza Type B (RT-PCR) NEGATIVE, Respiratory Syncytial Virus (PCR) NEGATIVE 06/27/21 06:25: Troponin I 0.38H, Immature Granulocyte % (Auto) 1.2, Neutrophils (%) (Auto) 76.5H, Lymphocytes (%) (Auto) 11.9L, Monocytes (%) (Auto) 8.8H, Eosinophils (%) (Auto) 1.3, Basophils (%) (Auto) 0.3, Neutrophils # (Auto) 7.5, Lymphocytes # (Auto) 1.2L, Monocytes # (Auto) 0.9H, Eosinophils # (Auto) 0.1, Basophils # (Auto) 0.0, Nucleated Red Blood Cells % (auto) 0.0, Anion Gap 6L, Glomerular Filtration Rate 48.4, Calcium Level 8.3L, Magnesium Level 1.8, Total Bilirubin 0.4, Aspartate Amino Transf (AST/SGOT) 27, Alanine Aminotransferase (ALT/SGPT) 44, Alkaline Phosphatase 60, Total Protein 5.1#L, Albumin 2.6#L, Albumin/G lobulin Ratio 1.0L, Vitamin B12 Level 193L, Folate 6.5, Procalcitonin <0.05 06/27/21 12:10: Lab Scanned Report Miscellaneous Lab CBC/BMP Laboratory Tests 06/26/21 21:46 06/27/21 06:25 Microbiology Microbiology 06/27/21 Blood Culture, Received Pending 06/27/21 Blood Culture, Received Pending Discharge Medications Scheduled Apixaban (Eliquis) 5 Mg Tablet, 5 MG PO BID, (Reported) Atenolol (Atenolol) 25 Mg Tablet, 25 MG PO DAILY, (Reported) Calcium Carbonate/Vitamin D3 (Calcium 600 + Vit D 400 Softgl) 1 Each Capsule, 1 CAP PO BID, (Reported) Ergocalciferol (Vitamin D2) (Vitamin D2) 50,000 Units Cap, 50,000 UNITS PO QMONTH, (Reported) Ferrous Sulfate (Ferrous Sulfate) 325 Mg Tablet.dr, 325 MG PO BID, (Reported) Fluoxetine Hcl (Fluoxetine HCl) 40 Mg Cap, 40 MG PO DAILY, (Reported) Fluticasone Propionate (Fluticasone Propionate) 16 Gm [place].susp, 2 SPRAYS NA DAILYPRN, (Reported) Ibandronate Sodium (Ibandronate Sodium) 150 Mg Tab, 150 MG PO QMONTH, (Reported) Levocetirizine Dihydrochloride (Levocetirizine Dihydrochloride) 5 Mg Tab, 5 MG PO DAILY, (Reported) Lisinopril (Lisinopril) 20 Mg Tablet, 20 MG PO DAILY, (Reported) Multivitamin,Therapeutic (Thera-Tabs) 1 Each Tablet, 1 TAB PO DAILY, (Reported) Omeprazole (Omeprazole) 40 Mg Cap, 40 MG PO BID, (Reported) Pregabalin (Pregabalin) 100 Mg Capsule, 100 MG PO BID, (Reported) Simvastatin (Simvastatin) 40 Mg Tablet, 40 MG PO QHS, (Reported) Scheduled PRN Albuterol Sulfate (Albuterol Sulfate Hfa) 8.5 Gm Hfa.aer.ad, 2 PUFFS INH QIDP PRN for SOB/WHEEZING, (Reported) Tramadol HCl (Tramadol HCl) 50 Mg Tablet, 50 MG PO TID PRN for pain, (Reported) Trazodone HCl (Trazodone HCl) 50 Mg Tablet, 50 MG PO QHS PRN for SLEEP, (Reported) Allergies Coded Allergies: No Known Allergies (Unverified , 03/03/20) GME ATTESTATION GME ATTESTATION My faculty preceptor for this patient encounter was physically present during the encounter and was fully available. All aspects of the patient interview, examination, medical decision making process, and medical care plan development were reviewed and approved by the faculty preceptor. The faculty preceptor is aware and concurs with the plan as stated in the body of this note and will attest to such by his/her cosignature. ATTENDING NOTE I, Tricia Stewart, have independently examined this patient and performed my own physical exam, as well as reviewed the documentation and edited where necessary with the resident. For medical students we have performed the physical exam together and discussed medical decision making and I have verified the history. I have discussed in detail with the resident / student the findings and plan of treatment as documented by the resident / student and edited their note. I agree with their findings and treatment plan and have edited their documentation. I will continue to follow the patient during this hospital stay. Time spent on discharge 20 minutes Priyanka Perez DO Jun 27, 2021 13:39 TRICIA STEWART MD Jun 27, 2021 15:06
[2021-06-27] MEDS ORDERED: SIMVASTATIN 40 MG TAB PO SCH (21:00)
--- NOTE | 2021-06-28 17:26 | ECGEPIP ---
[facility] - ED Test Date: 2021-06-26 Pat Name: ASAD KHAN Department: Room: [place] [address] Gender: Female Farm Machine Tender: estephania delgado : 1950 Requested By: MARTÍNEZ Asencio Order Number: [id number] Reading MD: Nakia Loob Measurements Intervals [place] Rate: 165 P: MS: QRS: 30 QRSD: 86 T: 211 QT: 290 QTc: 480 Interpretive Statements No prior Supraventricular tachycardia with occasional premature ventricular complexes Minimal voltage criteria for LVH, may be normal variant ( [place] product ) Marked ST abnormality, possible inferior subendocardial injury Electronically Signed on 06-28-2021 17:26:19 EDT by Nakia Lobo
--- NOTE | 2021-06-28 17:29 | ECGEPIP ---
[facility] - ED Test Date: 2021-06-27 Pat Name: ASAD KHAN Department: Room: [place] [address] Gender: Female Security Flex Utility Officer: silviano : 1950 Requested By: MARTÍNEZ Asencio Order Number: [id number] Reading MD: Nakia Lobo Measurements Intervals [place] Rate: 69 P: 18 CT: 174 QRS: 7 QRSD: 68 T: 20 QT: 426 QTc: 456 Interpretive Statements Normal sinus rhythm NSTTW abnormalities prior 21:25 SVT Electronically Signed on 06-28-2021 17:29:30 EDT by Nakia Lobo
== END 2021-06-27 15:10 | disposition home or self-care (01) | DRG 309 ==
LOC: M ED 21:12 → M ED INP 06-27 05:17 → OBSVTOIN 06-27 05:17 → ENRESERV 06-27 05:47 → M PCU 06-27 06:46
PROVIDERS: ADMIT Family Medicine; ATTEND Family Medicine
DX: I47.1 Supraventricular tachycardia (principal); D68.51 Activated protein C resistance; E87.2 Acidosis; I24.8 Other forms of acute ischemic heart disease; N17.9 Acute kidney failure, unspecified; I12.9 Hypertensive chronic kidney disease with stage 1 through stage 4 chronic kidney disease, or unspecified chronic kidney disease; E78.5 Hyperlipidemia, unspecified; K21.9 Gastro-esophageal reflux disease without esophagitis; M81.0 Age-related osteoporosis without current pathological fracture; M54.50 Low back pain, unspecified; Z98.1 Arthrodesis status; Z90.79 Acquired absence of other genital organ(s); D75.1 Secondary polycythemia; D75.89 Other specified diseases of blood and blood-forming organs; Z20.822 Contact with and (suspected) exposure to COVID-19; Z79.899 Other long term (current) drug therapy; N18.31 Chronic kidney disease, stage 3a

== ENCOUNTER → 2021-07-10 | Outpatient (CLI) | payer MEDICARE ==
[~2021-07-10] MED LIST changes: +ATEN25TA PO; +CALCCAP4 PO; +PREG100C PO; +THERTAB52 PO; +TRAM50TA2 PO
--- NOTE | 2021-07-12 08:20 | DEXAMM ---
INDICATION: OSTEOPENIA DETERMINED BY XRAY. COMPARISON: 05/05/2018 as well as other prior exams. TECHNIQUE: Bone density was measured using dual-energy x-ray absorptiometry (DEXA). FINDINGS: AP SPINE L1-L4 BMD 1.140 g/cm2 Young Adult T-Score -0.3 Age Matched Z-Score 1.4. LT FEMUR, TOTAL BMD 0.778 g/cm2 Young Adult T-Score -1.8 Age Matched Z-Score -0.3. LT NECK BMD 0.647 g/cm2 Young Adult T-Score -2.8 Age Matched Z-Score -1.0. RT FEMUR, TOTAL BMD 0.779 g/cm2 Young Adult T-Score -1.8 Age Matched Z-Score -0.2. RT NECK BMD 0.636 g/cm2 Young Adult T-Score -2.9 Age Matched Z-Score -1.1. IMPRESSION: There is normal bone density of the spine. There is osteoporosis of the left hip. There is osteoporosis of the right hip. The density of the spine has increased 11.3% since the initial exam on 11/13/2004. The density of the spine decreased 13.1% since most recent exam on 05/05/2018. The density of the left hip has decreased 5.5% since initial exam on 11/13/2004. The density of the left hip has decreased 5.4% since most recent exam on 05/05/2018. The density of the right hip has decreased 7.7% since the initial exam on 11/13/2004. The density of the right hip has decreased 5.8% since the most recent exam on 05/05/2018. FOLLOW-UP: Recommendation for the next bone density exam: 2 years. <Electronically signed by Chalo Jimenez > 07/12/21 0816
== END ==
LOC: M WHC 10:25
PROVIDERS: ATTEND Family Medicine
DX: M85.80 Other specified disorders of bone density and structure, unspecified site (principal); M81.8 Other osteoporosis without current pathological fracture

== ENCOUNTER → 2021-07-18 | Outpatient (REF) | payer MEDICARE ==
[2021-07-18 12:54] LABS: HEMATOCRIT 52.4 % (36.0-47.0); HEMOGLOBIN 16.9 g/dl (12.0-15.5); MEAN CORPUSCULAR HEMOGLOBIN 34.7 pg (27.0-33.0); MEAN CORPUSCULAR HGB CONC 32.3 g/dl (32.0-36.5); MEAN CORPUSCULAR VOLUME 107.6 fl (80.0-96.0); PLATELET COUNT, AUTOMATED 221 10^3/uL (150-450); RED BLOOD COUNT 4.87 10^6/uL (4.00-5.40); WHITE BLOOD COUNT 11.6 10^3/uL (4.0-10.0)
[2021-07-18 14:02] LABS: ALBUMIN 3.5 GM/DL (3.2-5.2); ALT/SGPT 51 U/L (12-78); BILIRUBIN,TOTAL 0.7 MG/DL (0.2-1.0); BLOOD UREA NITROGEN 16 MG/DL (7-18); CALCIUM LEVEL 9.9 MG/DL (8.8-10.2); CARBON DIOXIDE LEVEL 30 MEQ/L (21-32); CHLORIDE LEVEL 109 MEQ/L (98-107); CHOLESTEROL LEVEL 270 MG/DL (<200); CHOLESTEROL RISK RATIO 3.506 (<5); CREATININE FOR GFR 1.11 MG/DL (0.55-1.30); FREE T4 0.84 NG/DL (0.76-1.46); GLOMERULAR FILTRATION RATE 51.4 (>39); GLUCOSE, FASTING 113 MG/DL (70-100); HDL CHOLESTEROL 77 MG/DL (>40); LDL CHOLESTEROL 147 MG/DL (<100); NON-HDL-C 193 MG/DL; POTASSIUM SERUM 5.6 MEQ/L (3.5-5.1); SODIUM LEVEL 143 MEQ/L (136-145); TOTAL 25(OH) VITAMIN D 33.8 NG/ML (30.0-100.0); TOTAL PROTEIN 6.7 GM/DL (6.4-8.2); TRIGLYCERIDES LEVEL 228 MG/DL (<150)
[2021-07-18 14:03] LABS: THYROID PEROXIDASE ANTIBODY 43.7 U/ML (<60.0); VITAMIN B12 LEVEL > 2000 PG/ML (247-911)
[2021-07-18 14:04] LABS: FOLATE 7.3 NG/ML (>5.4)
[2021-07-19 10:32] LABS: ALBUMIN 3.92 GM/DL (3.29-5.55); ALBUMIN % 58.5 % (55.8-66.1); ALPHA-1-GLOBULIN % 4.8 % (2.9-4.9); ALPHA-1-GLOBULINS 0.32 GM/DL (0.17-0.41); ALPHA-2-GLOBULINS 1.21 GM/DL (0.42-0.99); BETA-1-GLOBULINS 0.43 GM/DL (0.28-0.60); BETA-1-GLOBULINS % 6.4 % (4.7-7.2); GAMMA GLOBULIN % 6.3 % (11.1-18.8); GAMMA GLOBULINS 0.42 GM/DL (0.65-1.58)
== END ==
LOC: M SFHCADAM 10:59
PROVIDERS: ATTEND Family Medicine
DX: E53.8 Deficiency of other specified B group vitamins (principal); M85.80 Other specified disorders of bone density and structure, unspecified site; I47.1 Supraventricular tachycardia; I11.9 Hypertensive heart disease without heart failure; D75.89 Other specified diseases of blood and blood-forming organs; E78.5 Hyperlipidemia, unspecified

== ENCOUNTER → 2022-09-11 | Outpatient (REF) | payer MEDICARE ==
[2022-09-11 14:09] LABS: BASO # 0.1 10^3/uL (0.0-0.2); BASO % 0.4 % (0.0-1.0); EOS # 0.1 10^3/uL (0.0-0.5); EOS % 0.3 % (0.0-3.0); HEMATOCRIT 49.3 % (36.0-47.0); HEMOGLOBIN 15.7 g/dl (12.0-15.5); LYMPH # 1.2 10^3/uL (1.5-5.0); LYMPH % 7.8 % (24.0-44.0); MEAN CORPUSCULAR HEMOGLOBIN 35.5 pg (27.0-33.0); MEAN CORPUSCULAR HGB CONC 31.8 g/dl (32.0-36.5); MEAN CORPUSCULAR VOLUME 111.5 fl (80.0-96.0); MONO # 1.1 10^3/uL (0.0-0.8); MONO % 7.5 % (2.0-8.0); NEUTROPHILS # 12.3 10^3/uL (1.5-8.5); NEUTROPHILS % 82.7 % (36.0-66.0); PLATELET COUNT, AUTOMATED 241 10^3/uL (150-450); RED BLOOD COUNT 4.42 10^6/uL (4.00-5.40); WHITE BLOOD COUNT 14.9 10^3/uL (4.0-10.0)
[2022-09-11 14:41] LABS: ALBUMIN 3.6 G/DL (3.2-5.2); BILIRUBIN,TOTAL 0.5 MG/DL (0.3-1.2); CHOLESTEROL RISK RATIO 2.24 (<5); CREATININE FOR GFR 1.39 MG/DL (0.55-1.30); GLOMERULAR FILTRATION RATE 39.6 (>39); HDL CHOLESTEROL 52.9 MG/DL (>40); LDL CHOLESTEROL 39.9 MG/DL (<100); POTASSIUM SERUM 4.8 MMOL/L (3.5-5.1); TOTAL PROTEIN 6.6 G/DL (5.7-8.2)
[2022-09-11 14:42] LABS: THYROID STIMULATING HORMONE 2.501 uIU/ML (0.55-4.78); TOTAL 25(OH) VITAMIN D 70.6 NG/ML (20.0-100.0)
[2022-09-11 14:43] LABS: FREE T4 0.87 NG/DL (0.89-1.76)
== END ==
LOC: M SFHCADAM 10:42
PROVIDERS: ATTEND Family Medicine
DX: D75.89 Other specified diseases of blood and blood-forming organs (principal); I11.9 Hypertensive heart disease without heart failure; E78.5 Hyperlipidemia, unspecified; I47.1 Supraventricular tachycardia; E55.9 Vitamin D deficiency, unspecified; M85.80 Other specified disorders of bone density and structure, unspecified site

== ENCOUNTER 2022-09-20 12:15 | Inpatient (IN) | payer MEDICARE ==
[~2022-09-20] VITALS: Ht 152.4 cm; Wt 71.9 kg
[2022-09-20] MEDS ORDERED: COMBIVENT RESPIMAT 100-20MCG INHALER 4GM INH STA (14:37)
[2022-09-20 15:59] VITALS: O2SAT 92
[2022-09-20] MEDS ORDERED: ACETAMINOPHEN 325 MG TAB PO ONE (16:05)
[2022-09-20] MEDS ORDERED: IPRATROPIUM 0.5MG/ALBUTEROL 2.5MG INH SOL UD 3ML (DUONEB) NEB ONE (16:05)
[2022-09-20] MEDS ORDERED: methylPREDNISolone 125MG 2ML VIAL IV ONE (16:05)
[2022-09-20 17:35] LABS: BASO % 0.3 % (0.0-1.0); EOS % 0.1 % (0.0-3.0); HEMATOCRIT 49.8 % (36.0-47.0); HEMOGLOBIN 16.3 g/dl (12.0-15.5); LYMPH # 1.5 10^3/uL (1.5-5.0); LYMPH % 10.8 % (24.0-44.0); MEAN CORPUSCULAR HEMOGLOBIN 34.7 pg (27.0-33.0); MEAN CORPUSCULAR HGB CONC 32.7 g/dl (32.0-36.5); NEUTROPHILS # 10.7 10^3/uL (1.5-8.5); NEUTROPHILS % 76.2 % (36.0-66.0); PLATELET COUNT, AUTOMATED 162 10^3/uL (150-450)
[2022-09-20 18:09] LABS: MONO # 1.7 10^3/uL (0.0-0.8)
[2022-09-20 19:18] LABS: ALBUMIN 2.9 G/DL (3.2-5.2); BILIRUBIN,DIRECT 0.4 MG/DL (<0.4); CALCIUM LEVEL 9.1 MG/DL (8.3-10.6); CREATININE FOR GFR 1.11 MG/DL (0.55-1.30); GLOMERULAR FILTRATION RATE 51.3 (>39); POTASSIUM SERUM 3.9 MMOL/L (3.5-5.1); TOTAL PROTEIN 6.1 G/DL (5.7-8.2)
[2022-09-20 19:20] LABS: THYROID STIMULATING HORMONE 1.228 uIU/ML (0.55-4.78); THYROXINE (T4) 7.6 UG/DL (4.5-10.9)
[2022-09-20] MEDS ORDERED: METO25TA4 PO (20:48)
[2022-09-20] MEDS ORDERED: LISI40TA4 PO (20:48)
[2022-09-20] MEDS ORDERED: HYDR-4517 PO (20:48)
[2022-09-20] MEDS ORDERED: AMLO1TAB24 PO (20:48)
[2022-09-20] MEDS ORDERED: ATOR40TA75 PO (20:48)
[2022-09-20] MEDS ORDERED: HOME MED LIST COMPLETE! XX SCH (20:50)
[2022-09-20] MEDS ORDERED: OSELTAMIVIR PHOSPHATE 75 MG CAP (TAMIFLU) PO SCH (21:00)
[2022-09-20] MEDS ORDERED: ALBUTEROL SULFATE 2.5MG/0.5ML INH NEB SOLN NEB STA (21:08)
[2022-09-20] MEDS ORDERED: traMADol 50 MG TAB PO PRN (21:10)
[2022-09-20] MEDS ORDERED: ACETAMINOPHEN TAB 650MG DOSE (2X325MG) PO PRN (21:10)
[2022-09-20] MEDS ORDERED: NS 500 ML IV SCH (21:10)
[2022-09-20] MEDS ORDERED: DEXTROSE 50% 50ML SYRINGE IV PRN (21:10)
[2022-09-20] MEDS ORDERED: GLUCAGON INJ 1MG VIAL SC PRN (21:10)
[2022-09-20] MEDS ORDERED: GLUCOSE 4GM CHEW TABLET PO PRN (21:10)
[2022-09-20] MEDS ORDERED: OSELTAMIVIR PHOSPHATE 75 MG CAP (TAMIFLU) PO ONE (22:00)
[2022-09-20] MEDS ORDERED: ALBUTEROL SULFATE 2.5MG/0.5ML INH NEB SOLN NEB PRN (22:00)
[2022-09-20] MEDS: METOPROLOL TART 25 MG TABLET PO SCH (22:22)
[2022-09-20] MEDS: APIXABAN 5 MG TAB (ELIQUIS) PO SCH (22:23)
[2022-09-20] MEDS: ATORVASTATIN 20 MG TAB PO SCH (22:23)
[2022-09-20] MEDS: DOXYCYCLINE HYCLATE 100MG TABLET PO SCH (22:23)
[2022-09-20] MEDS: IPRATROPIUM 0.5MG/ALBUTEROL 2.5MG INH SOL UD 3ML (DUONEB) NEB SCH (22:42)
[2022-09-21] MEDS ORDERED: methylPREDNISolone 40MG 1ML VIAL IV SCH (01:00)
[2022-09-21] MEDS: IPRATROPIUM 0.5MG/ALBUTEROL 2.5MG INH SOL UD 3ML (DUONEB) NEB SCH ×4 (03:26→19:24)
[2022-09-21] MEDS ORDERED: ALBUTEROL SULFATE 2.5MG/0.5ML INH NEB SOLN NEB PRN (07:20)
[2022-09-21 07:34] LABS: HEMATOCRIT 45.9 % (36.0-47.0); HEMOGLOBIN 15.1 g/dl (12.0-15.5); MEAN CORPUSCULAR HEMOGLOBIN 35.2 pg (27.0-33.0); MEAN CORPUSCULAR HGB CONC 32.9 g/dl (32.0-36.5); PLATELET COUNT, AUTOMATED 147 10^3/uL (150-450); RED BLOOD COUNT 4.29 10^6/uL (4.00-5.40); WHITE BLOOD COUNT 14.2 10^3/uL (4.0-10.0)
[2022-09-21 07:48] LABS: BILIRUBIN,TOTAL 0.7 MG/DL (0.3-1.2); CALCIUM LEVEL 8.9 MG/DL (8.3-10.6); CREATININE FOR GFR 1.16 MG/DL (0.55-1.30); GLOMERULAR FILTRATION RATE 48.8 (>39); POTASSIUM SERUM 3.6 MMOL/L (3.5-5.1); TOTAL PROTEIN 6.3 G/DL (5.7-8.2)
[2022-09-21 07:50] LABS: INR 1.57; PROTHROMBIN TIME 19.1 SECONDS (12.5-14.5)
[2022-09-21 07:51] LABS: PARTIAL THROMBOPLASTIN TIME 35.2 SECONDS (24.8-34.2)
[2022-09-21] MEDS ORDERED: lisinopriL 40MG TAB PO SCH (09:00)
[2022-09-21] MEDS ORDERED: ANEXSIA, NORCO 7.5MG/325MG TABLET(HYDROCODONE/APAP) PO PRN (09:05)
[2022-09-21] MEDS: methylPREDNISolone 40MG 1ML VIAL IV SCH ×2 (09:58→21:16)
[2022-09-21] MEDS: LEVEMIR (INSULIN DETEMIR) 1 UNITS/0.01ML SC SCH (09:59)
[2022-09-21] MEDS: INSULIN LISPRO (NovoLOG) PER UNIT SC SCH ×4 (09:59→21:00)
[2022-09-21] MEDS: OMEPRAZOLE 20MG CAP PO SCH (10:00)
[2022-09-21] MEDS: FLUoxetine 20MG CAP PO SCH (10:00)
[2022-09-21] MEDS: DOXYCYCLINE HYCLATE 100MG TABLET PO SCH ×2 (10:01→21:16)
[2022-09-21] MEDS: APIXABAN 5 MG TAB (ELIQUIS) PO SCH ×2 (10:01→21:16)
[2022-09-21] MEDS: amLODIPine 5 MG TAB PO SCH (10:02)
[2022-09-21] MEDS: METOPROLOL TART 25 MG TABLET PO SCH ×3 (10:02→21:17)
[2022-09-21] MEDS: OSELTAMIVIR PHOSPHATE 30MG CAPSULE PO SCH ×2 (10:04→21:16)
[2022-09-21 13:37] LABS: HEMOGLOBIN A1c 5.3 % (4.0-6.0)
[2022-09-21 14:00] VITALS: BP 127/79
[2022-09-21] MEDS: ANEXSIA, NORCO 7.5MG/325MG TABLET(HYDROCODONE/APAP) PO PRN (17:28)
[2022-09-21] MEDS ORDERED: LevoFLOXacin 500 MG TABLET PO ONE (18:00)
[2022-09-21 20:00] VITALS: BP 117/55
[2022-09-21] MEDS: ATORVASTATIN 20 MG TAB PO SCH (21:16)
[2022-09-22] MEDS: IPRATROPIUM 0.5MG/ALBUTEROL 2.5MG INH SOL UD 3ML (DUONEB) NEB SCH ×4 (02:00→20:51)
[2022-09-22 06:00] VITALS: BP 119/67
[2022-09-22 06:30] LABS: HEMATOCRIT 40.3 % (36.0-47.0); HEMOGLOBIN 13.7 g/dl (12.0-15.5); MEAN CORPUSCULAR HEMOGLOBIN 35.4 pg (27.0-33.0); MEAN CORPUSCULAR VOLUME 104.1 fl (80.0-96.0); PLATELET COUNT, AUTOMATED 159 10^3/uL (150-450); RED BLOOD COUNT 3.87 10^6/uL (4.00-5.40); WHITE BLOOD COUNT 20.6 10^3/uL (4.0-10.0)
[2022-09-22 07:02] LABS: ALBUMIN 2.5 G/DL (3.2-5.2); BILIRUBIN,TOTAL 0.4 MG/DL (0.3-1.2); CALCIUM LEVEL 8.5 MG/DL (8.3-10.6); CREATININE FOR GFR 1.21 MG/DL (0.55-1.30); GLOMERULAR FILTRATION RATE 46.4 (>39); TOTAL PROTEIN 5.4 G/DL (5.7-8.2)
[2022-09-22] MEDS: LEVEMIR (INSULIN DETEMIR) 1 UNITS/0.01ML SC SCH (08:14)
[2022-09-22] MEDS ORDERED: LEVEMIR (INSULIN DETEMIR) 1 UNITS/0.01ML SC ONE (08:15)
[2022-09-22] MEDS: INSULIN LISPRO (NovoLOG) PER UNIT SC SCH ×4 (08:40→21:00)
[2022-09-22] MEDS: methylPREDNISolone 40MG 1ML VIAL IV SCH (08:40)
[2022-09-22] MEDS: OMEPRAZOLE 20MG CAP PO SCH (08:40)
[2022-09-22] MEDS: APIXABAN 5 MG TAB (ELIQUIS) PO SCH ×2 (08:41→20:50)
[2022-09-22] MEDS: DOXYCYCLINE HYCLATE 100MG TABLET PO SCH ×2 (08:41→20:50)
[2022-09-22] MEDS: FLUoxetine 20MG CAP PO SCH (08:41)
[2022-09-22] MEDS: OSELTAMIVIR PHOSPHATE 30MG CAPSULE PO SCH ×2 (08:41→20:50)
[2022-09-22] MEDS: amLODIPine 5 MG TAB PO SCH (08:41)
[2022-09-22] MEDS: ANEXSIA, NORCO 7.5MG/325MG TABLET(HYDROCODONE/APAP) PO PRN ×2 (08:41→20:50)
[2022-09-22] MEDS: METOPROLOL TART 25 MG TABLET PO SCH ×3 (08:42→20:52)
[2022-09-22 14:00] VITALS: BP 114/65
[2022-09-22] MEDS ORDERED: LevoFLOXacin 250 MG TABLET PO SCH (18:00)
[2022-09-22 20:00] VITALS: BP 112/68
[2022-09-22] MEDS: ATORVASTATIN 20 MG TAB PO SCH (20:50)
[2022-09-22] MEDS ORDERED: traZODone 25MG PER 1/2 TABLET PO ONE (21:00)
[2022-09-23] MEDS: IPRATROPIUM 0.5MG/ALBUTEROL 2.5MG INH SOL UD 3ML (DUONEB) NEB SCH ×2 (02:00→07:19)
[2022-09-23 06:00] VITALS: BP 116/68
[2022-09-23 06:43] LABS: HEMATOCRIT 40.2 % (36.0-47.0); HEMOGLOBIN 13.4 g/dl (12.0-15.5); MEAN CORPUSCULAR HEMOGLOBIN 35.2 pg (27.0-33.0); MEAN CORPUSCULAR HGB CONC 33.3 g/dl (32.0-36.5); MEAN CORPUSCULAR VOLUME 105.5 fl (80.0-96.0); PLATELET COUNT, AUTOMATED 171 10^3/uL (150-450); RED BLOOD COUNT 3.81 10^6/uL (4.00-5.40); WHITE BLOOD COUNT 17.6 10^3/uL (4.0-10.0)
[2022-09-23 06:58] LABS: ALBUMIN 2.6 G/DL (3.2-5.2); BILIRUBIN,TOTAL 0.4 MG/DL (0.3-1.2); CALCIUM LEVEL 8.6 MG/DL (8.3-10.6); CREATININE FOR GFR 1.05 MG/DL (0.55-1.30); GLOMERULAR FILTRATION RATE 54.7 (>39); TOTAL PROTEIN 5.3 G/DL (5.7-8.2)
[2022-09-23] MEDS ORDERED: OSEL30CA PO ×2 (07:52→09:45)
[2022-09-23] MEDS ORDERED: LEVO1TAB38 PO ×2 (07:52→09:45)
[2022-09-23] MEDS ORDERED: PRED20TA PO ×2 (07:52→09:45)
[2022-09-23] MEDS: LEVEMIR (INSULIN DETEMIR) 1 UNITS/0.01ML SC SCH (09:00)
[2022-09-23] MEDS ORDERED: predniSONE 20 MG TAB PO SCH (09:00)
[2022-09-23] MEDS ORDERED: COLA100C5 PO ×2 (09:25→09:45)
[2022-09-23] MEDS: OMEPRAZOLE 20MG CAP PO SCH (09:35)
[2022-09-23] MEDS: FLUoxetine 20MG CAP PO SCH (09:36)
[2022-09-23] MEDS: INSULIN LISPRO (NovoLOG) PER UNIT SC SCH ×2 (09:36→12:00)
[2022-09-23] MEDS: DOXYCYCLINE HYCLATE 100MG TABLET PO SCH (09:36)
[2022-09-23] MEDS: APIXABAN 5 MG TAB (ELIQUIS) PO SCH (09:36)
[2022-09-23 09:37] VITALS: BP 115/66
[2022-09-23] MEDS: amLODIPine 5 MG TAB PO SCH (09:37)
[2022-09-23] MEDS: METOPROLOL TART 25 MG TABLET PO SCH (09:37)
[2022-09-23] MEDS: OSELTAMIVIR PHOSPHATE 30MG CAPSULE PO SCH (09:37)
== END 2022-09-23 13:15 | disposition home or self-care (01) | DRG 871 ==
LOC: M ED 12:15 → M ED INP 21:08 → ENRESERV 09-21 12:15 → M MSPAV 09-21 13:55
PROVIDERS: ADMIT Internal Medicine; ATTEND Internal Medicine
DX: A41.89 Other specified sepsis (principal); J15.9 Unspecified bacterial pneumonia; J45.901 Unspecified asthma with (acute) exacerbation; D68.51 Activated protein C resistance; J09.X2 Influenza due to identified novel influenza A virus with other respiratory manifestations; K21.9 Gastro-esophageal reflux disease without esophagitis; F32.A Depression, unspecified; Z79.891 Long term (current) use of opiate analgesic; I10 Essential (primary) hypertension; Z79.01 Long term (current) use of anticoagulants; Z79.899 Other long term (current) drug therapy; Z20.822 Contact with and (suspected) exposure to COVID-19; D72.829 Elevated white blood cell count, unspecified; T38.0X5A Adverse effect of glucocorticoids and synthetic analogues, initial encounter

== ENCOUNTER → 2022-10-03 | Outpatient (CLI) | payer MEDICARE ==
[~2022-10-03] MED LIST changes: +AMLO1TAB24 PO; +ATOR40TA75 PO; +COLA100C5 PO; +HYDR-4517 PO; +LEVO1TAB38 PO; +LISI40TA4 PO; +METO25TA4 PO; +OSEL30CA PO; +PRED20TA PO
== END ==
LOC: M ADAMS 10:01
PROVIDERS: ATTEND Family Medicine
DX: J18.9 Pneumonia, unspecified organism (principal)

== ENCOUNTER → 2022-12-14 | Outpatient (CLI) | payer MEDICARE | LOC: M ADAMS 11:38 | PROVIDERS: ATTEND Physician Assistant Medical | DX: M25.512 Pain in left shoulder (principal) ==

== ENCOUNTER → 2023-10-22 | Outpatient (REF) | payer MEDICARE ==
[~2023-10-22] MED LIST changes: +AMLO1TAB25 PO; +CALC600T60 PO; -PREG100C PO; +PREG100C2 PO; +VITAMIN D PO
[2023-10-22 13:36] LABS: HEMATOCRIT 53.9 % (36.0-47.0); HEMOGLOBIN 17.3 g/dl (12.0-15.5); MEAN CORPUSCULAR HEMOGLOBIN 35.2 pg (27.0-33.0); MEAN CORPUSCULAR HGB CONC 32.1 g/dl (32.0-36.5); MEAN CORPUSCULAR VOLUME 109.6 fl (80.0-96.0); PLATELET COUNT, AUTOMATED 315 10^3/uL (150-450); RED BLOOD COUNT 4.92 10^6/uL (4.00-5.40); WHITE BLOOD COUNT 19.4 10^3/uL (4.0-10.0)
[2023-10-22 13:40] LABS: THYROID STIMULATING HORMONE 3.668 uIU/ML (0.55-4.78)
[2023-10-22 13:41] LABS: ALBUMIN 3.3 G/DL (3.2-5.2); BILIRUBIN,TOTAL 0.4 MG/DL (0.3-1.2); CALCIUM LEVEL 9.9 MG/DL (8.3-10.6); CHOLESTEROL RISK RATIO 3.07 (<5); CREATININE FOR GFR 1.07 MG/DL (0.55-1.30); FREE T4 1.05 NG/DL (0.89-1.76); GLOMERULAR FILTRATION RATE 53.4 (>39); HDL CHOLESTEROL 41.6 MG/DL (>40); NON-HDL-C 86.4 MG/DL; POTASSIUM SERUM 4.2 MMOL/L (3.5-5.1); TOTAL PROTEIN 6.8 G/DL (5.7-8.2)
[2023-10-22 13:51] LABS: HEMOGLOBIN A1c 5.2 % (4.0-6.0)
== END ==
LOC: M SFHCADAM 08:59
PROVIDERS: ATTEND Family Medicine
DX: I11.9 Hypertensive heart disease without heart failure (principal); E78.5 Hyperlipidemia, unspecified; E53.8 Deficiency of other specified B group vitamins; J01.90 Acute sinusitis, unspecified; Z13.1 Encounter for screening for diabetes mellitus; Z79.899 Other long term (current) drug therapy

== ENCOUNTER → 2023-10-22 | Outpatient (CLI) | payer MEDICARE | LOC: M ADAMS 09:16 | PROVIDERS: ATTEND Family Medicine | DX: Z00.00 Encounter for general adult medical examination without abnormal findings (principal) ==

== ENCOUNTER → 2023-10-22 | Outpatient (CLI) | payer MEDICARE | LOC: M ADAMS 09:17 | PROVIDERS: ATTEND Family Medicine | DX: Z00.00 Encounter for general adult medical examination without abnormal findings (principal); Z96.82 Presence of neurostimulator ==

== ENCOUNTER → 2025-01-29 | Outpatient (REF) | payer MEDICARE ==
[~2025-01-29] MED LIST changes: +IBAN150T10 PO; -IBAN150T6 PO
[2025-01-29 18:33] LABS: HEMATOCRIT 48.9 % (36.0-47.0); HEMOGLOBIN 15.8 g/dl (12.0-15.5); MEAN CORPUSCULAR HEMOGLOBIN 37.6 pg (27.0-33.0); MEAN CORPUSCULAR HGB CONC 32.3 g/dl (32.0-36.5); PLATELET COUNT, AUTOMATED 243 10^3/uL (150-450); WHITE BLOOD COUNT 14.4 10^3/uL (4.0-10.0)
[2025-01-29 18:36] LABS: MEAN CORPUSCULAR VOLUME 116.4 fl (80.0-96.0)
[2025-01-29 20:50] LABS: ALBUMIN 4.1 G/DL (3.2-5.2); BILIRUBIN,TOTAL 0.7 MG/DL (0.3-1.2); CALCIUM LEVEL 10.3 MG/DL (8.3-10.6); CHOLESTEROL RISK RATIO 3.45 (<5); CREATININE FOR GFR 1.16 MG/DL (0.55-1.30); GLOMERULAR FILTRATION RATE 49.2 (>39); HDL CHOLESTEROL 72.1 MG/DL (>40); LDL CHOLESTEROL 142.3 MG/DL (<100); NON-HDL-C 176.9 MG/DL; TOTAL PROTEIN 6.9 G/DL (5.7-8.2)
[2025-01-29 20:51] LABS: FOLATE 10.5 NG/ML (>5.4); THYROID STIMULATING HORMONE 1.156 uIU/ML (0.55-4.78); TOTAL 25(OH) VITAMIN D 35.8 NG/ML (20.0-100.0)
[2025-01-29 20:52] LABS: FREE T4 0.92 NG/DL (0.89-1.76)
== END ==
LOC: M SFHCADAM 14:21
PROVIDERS: ATTEND Family Medicine
DX: M85.80 Other specified disorders of bone density and structure, unspecified site (principal); E53.8 Deficiency of other specified B group vitamins; E78.5 Hyperlipidemia, unspecified; Z13.1 Encounter for screening for diabetes mellitus